=== PATIENT | female | born 1960 | race Caucasian/White ===

== ENCOUNTER 2023-12-25 08:13 | Oncology outpatient (recurring) (ONCR) | payer MEDICAID, SELFPAY ==
[2023-12-25 08:59] LABS: Basophils # 0.1 10^3/uL (0.0-0.1); Basophils % 0.8 %; Eosinophils # 0.3 10^3/uL (0.0-0.8); Eosinophils % 3.4 %; Hematocrit 41.5 % (36-47); Lymphocytes # 3.3 10^3/uL (0.8-4.8); Mean Corpuscular HGB Conc 32.3 g/dL (30-55); Mean Corpuscular Hemoglobin 29.1 pg (27-33); Mean Platelet Volume 13.9 fL (7.4-10.4); Monocytes # 0.6 10^3/uL (0.2-0.9); Neutrophils % 44.7 %; Nucleated Red Blood Cells % 0 %; Platelet Count 124 10^3/cmm (157-399); Red Blood Count 4.61 10^6/uL (3.85-5.65); Red Cell Distribution Width 13.7 % (12.1-15.1); White Blood Count 7.61 10^3/uL (3.29-11.43)
[2023-12-25 09:21] LABS: Slide Review Slide Review Perform
[2023-12-25 09:27] LABS: Alanine Aminotransferase 18 U/L (0-33); Albumin Level 3.9 g/dL (3.5-5.2); Alkaline Phosphatase 78 U/L (35-105); Anion Gap 14.2 (5-19); Aspartate Amino Transferase 16 U/L (0-32); Blood Urea Nitrogen 21 mg/dL (8-23); Calcium 8.9 mg/dL (8.5-10.5); Carbon Dioxide 27 mmol/L (22-29); Chloride 101 mmol/L (98-107); Creatinine Clr Calc Pharmacy 90.8225; Globulin 2.9 g/dL (1.3-4.6); Glomerular Filtration Rate 100.3 mL/min (90-130); Glucose 268 mg/dL (65-115); Lactate Dehydrogenase 156 U/L (135-214); Osmolality Calculated 298 mOsm/kg (285-295); Potassium 4.2 mmol/L (3.5-5.1); Sodium 138 mmol/L (136-145); Total Bilirubin 0.4 mg/dL (0.15-1.2); Total Protein 6.8 g/dL (6.6-8.7)
== END 2023-12-25 23:59 | disposition home or self-care (01) ==
PROVIDERS: Family Provider Nurse Practitioner Family; Visit Provider Internal Medicine Hematology & Oncology
DX: D69.6 Thrombocytopenia, unspecified (principal)
CPT/HCPCS: 36415; 80053; 83010; 83615; 85025; 99204

== ENCOUNTER 2024-11-12 08:42 | Emergency (ER) | payer MEDICAID, SELFPAY ==
[2024-11-12 08:42] VITALS: BP 176/87; PULSE 68; RESP 19; TEMP 36.5; O2SAT 98; BMI 49.2
--- NOTE | 2024-11-12 08:47 | CT_ITS ---
WS: [id number] CT ABDOMEN AND PELVIS WITH CONTRAST HISTORY: abd pain, LEFT lower quadrant pain. TECHNIQUE: Imaging performed of the abdomen and pelvis with IV contrast. Single phase imaging of the abdomen. Coronal and sagittal reformats are submitted. All CT scans at [facility] use at least one of these dose optimization techniques: automated exposure control; mA and/or kV adjustment per patient size (includes targeted exams where dose is matched to clinical indication); or iterative reconstruction. IV CONTRAST: Omnipaque 350; 100 mL IV. Oral contrast: No DLP: 1193.53 mGy.cm COMPARISON: 01/06/2019 Lower thorax: Mild bronchial wall thickening medial RIGHT lower lobe adjacent to the spine. 5 mm RIGHT perifissural nodule. Heart is normal size. Mild distal esophageal wall thickening. Liver/biliary system: Mild hepatomegaly. Mild central bile duct dilatation is related to cholecystectomy. Common bile duct measures 8.2 mm. Gallbladder: Prior cholecystectomy. Pancreas: Normal size pancreas and pancreatic duct. No adjacent inflammation. Spleen: Normal size spleen. No mass or infarct. Adrenal glands: Normal. Right kidney: Normal. Left kidney: Mildly enlarged edematous LEFT kidney. Perinephric stranding surrounding the kidney with perinephric fluid. LEFT renal cyst 4.5 x 4.9 cm lower pole. Nonobstructing 2 mm calcification in the lower pole. Mild dilatation of the RIGHT renal pelvis and proximal ureter secondary to a 4 mm calcification. Calcification is in the proximal ureter. The more distal ureter is normal caliber. There is also slight delayed excretion in the LEFT kidney compared to the RIGHT. No renal abscess. Aorta: Mild atherosclerosis with no aneurysm. Lymphadenopathy: None. Free fluid: No free fluid in the pelvis. GI tract: High density mid distal material within the stomach. No small bowel obstruction. Prior appendectomy. No colon obstruction or colitis. Abdominal wall: Fat containing umbilical hernia. Pelvis: No free fluid or adenopathy within the pelvis. Prior hysterectomy. Negative urinary bladder. Bones: Increase in the lumbar lordosis. CT/CT abdomen pelvis w con* [id number] IMPRESSION: 1. Mild LEFT hydroureteronephrosis secondary to a 4 mm calcification in the pr oximal ureter. 2. Mild perinephric stranding, perinephric fluid and delayed excretion from th e LEFT kidney. 3. No renal abscess. 4. Prior appendectomy. 5. Prior hysterectomy. 6. No GI tract obstruction.
--- NOTE | 2024-11-12 08:48 | ED_ITS ---
HPI - Abdominal Pain 2 General: Chief Complaint: Abdominal Pain Stated Complaint: abd pain Time Seen by Provider: 11/12/24 08:42 Source: patient Mode of arrival: ambulatory Limitations: no limitations History of Present Illness: 64-year-old female states that she has b een having left lower quadrant abdominal pain since last night. She states the pain is sharp in nature she rates an 8 out of 10. She denies any fever denies any dysuria denies any diarrhea. She states pain is worse with movement and palpation. Associated Symptoms: Reports nausea; Denies chills, diarrhea, dysuria, fever(s) and vomiting Related Data Home Medications ?Medication ?Instructions ?Recorded ?Confirmed famotidine 40 mg tablet mg PO PRN 12/25/23 12/25/23 glyburide 5 mg tablet mg PO 12/25/23 12/25/23 insulin human U-100 NPH-regulr SUBCUT 12/25/23 4 70-30 mix 100 unit/mL subcutaneous susp (Novolin 70/30 U-100 Insulin) lisinopril 2.5 mg tablet mg PO 12/25/23 12/25/23 tramadol 50 mg tablet mg PO PRN 12/25/23 12/25/23 Previous Rx's ?Medication ?Instructions ?Recorded hydrocodone 5 mg-acetaminophen 325 1 tab PO Q6H PRN pa in #14 tabs 11/12/24 mg tablet ondansetron 4 mg disintegrating 4 mg PO Q6H PRN nausea and 11/12/24 tablet vomiting #14 tabs tamsulosin 0.4 mg capsule (Flomax) 0.4 mg PO DAILY #5 caps 11/12/24 Allergies Allergy/AdvReac Type Severity Reaction Status Date / Time amoxicillin Allergy Unknown Dizziness Verified 12/25/23 08:19 ciprofloxacin Allergy Unknown ALGY-Hives Verified 12/25/23 08:19 levothyroxine Allergy Unknown ALGY-Rash Verified 12/25/23 08:19 Sulfa (Sulfonamide Allergy Unknown ALGY-Rash Verified 12/25/23 08:19 Antibiotics) Influenza vaccine Allergy Unknown Unknown Uncoded 12/25/23 08:19 steroid shot Allergy Unknown Seizure Uncoded 12/25/23 08:19 Review of Systems 2 Const: Denies: fever(s), chills, body aches or change in appetite ENMT: Denies: throat pain or dental pain Card: Denies: chest pain Resp: Denies: dyspnea GI: Reports: abdominal pain and nausea; Denies: vomiting or diarrhea : Denies: dysuria Musc: Denies: neck pain or back pain Skin/Breast: Denies: rash Neuro: Denies: headache(s) PFSH ED 2 PFSH: Social History Smoking and tobacco/nicotine status: never used tobacco/nicotine Physical Exam 2 Const: COMMON NORMALS: no acute distress, patient oriented x3 and healthy appearing HENMT: COMMON NORMALS: normocephalic and atraumatic HEAD & SCALP: n ormocephalic and atraumatic Eye: COMMON NORMALS: conjunctivae normal CONJUNCTIVA: Yes conjunctivae normal Neck/C-Spine: COMMON NORMALS: full ROM and supple Chest: COMMONS NORMALS: normal inspection of the chest Resp: COMMON NORMALS: normal respiratory effort, No retractions, No use of accessory muscles and clear to auscultation bilaterally AUSCULTATION: clear to auscultation bilaterally Cardio: COMMON NORMALS: regular rate, regular rhythm and No murmurs present (Cardio) RATE: regular rate RHYTHM: regular rhythm GI: COMMON NORMALS: Normal to inspection, nondistended, normoactive bowel sounds present, Soft to palpation and no masses PALPATION: Yes Soft to palpation and Yes Tenderness to palpation present (GI) Details: LLQ Extremity: COMMON NORMALS: normal to inspection and full ROM Neuro: COMMON NORMALS: patient oriented x3, moves all extremities and no focal motor deficits Psych: COMMON NORMALS: mental status grossly normal, Normal thought process present and cooperative THOUGHT PROCESS: Normal thought process present Skin: COMMON NORMALS: no rashes or lesions noted and no wounds GENERAL SKIN EXAM: no rashes or lesions noted Course 2 Vital Signs: Vital signs: Vital Signs Temperature 97.7 F 11/12/24 08:42 Pulse Rate 75 11/12/24 10:17 Respiratory Rate 16 11/12/24 09:47 Blood Pressure 143/55 11/12/24 09:47 Pulse Oximetry 91 11/12/24 10:17 Oxygen Delivery Me thod Room Air 11/12/24 09:47 MDM - Abdominal Pain Medical Decision Making Patient presents here with left lower abdominal and flank pain. I did review patient's blood work urinalysis no signs of urinary tract infection kidney functions intact. CT scan here did show a kidney stone likely causing her pain. I did reevaluate her pain is much improved did go over her labs along with CT findings of the kidney stone. Will prescribe her hydrocodone along with Flomax and Zofran for home she is to follow-up with urology she understands and agrees to plan. She is return if worsening or any signs of infection. Medical Records I reviewed the patient's medical records. Lab Data I reviewed the patient's lab results. 11/12/24 08:51 11/12/24 08:51 Labs/Radiology: Radiology Impressions Abdomen/Pelvis CT 11/12/24 08:47 IMPRESSION: 1. Mild LEFT hydroureteronephrosis secondary to a 4 mm calcification in the proximal ureter. 2. Mild perinephric stranding, perinephric fluid and delayed excretion from the LEFT kidney. 3. No renal abscess. 4. Prior appendectomy. 5. Prior hysterectomy. 6. No GI tract obstruction. Laboratory Results WBC 11.02 10^3/uL (3.29-11.43) 11/12/24 08:51 RBC 4.65 10^6/uL (3.85-5.65) 11/12/24 08:51 Hgb 13.70 g/dL (11.27-16.99) 11/12/24 08:51 Hct 42.7 % (36-47) 11/12/24 08:51 MCV 91.8 fl (85-98) 11/12/24 08:51 MCH 29.5 pg (27-33) 11/12/24 08:51 MCHC 32.1 g/dL (30-55) 11/12/24 08:51 RDW 13.3 % (12.1-15.1) 11/12/24 08:51 Plt Count 135 10^3/cmm (157-399) L 11/12/24 08:51 MPV 14.1 fL (7.4-10.4) H 11/12/24 08:51 Neut % (Auto) 68.5 % 11/12/24 08:51 Lymph % (Auto) 23.8 % 11/12/24 08:51 Steele % (Auto) 5.7 % 11/12/24 08:51 Eos % (Auto) 1.2 % 11/12/24 08:51 Baso % (Auto) 0.5 % 11/12/24 08:51 Neut # (Auto) 7.55 10^3/uL (1.8-7.7) 11/12/24 08:51 Lymph # (Auto) 2.6 10^3/uL (0.8-4.8) 11/12/24 08:51 Steele # (Auto) 0.6 10^3/uL (0.2-0.9) 11/12/24 08:51 Eos # (Auto) 0.1 10^3/uL (0.0-0.8) 11/12/24 08:51 Baso # (Auto) 0.1 10^3/uL (0.0-0.1) 11/12/24 08:51 Nucleated RBC % (auto) 0 % 11/12/24 08:51 Nucleated RBCs # 0.0 /100WBC 11/12/24 08:51 Sodium 138 mmol/L (136-145) 11/12/24 08:51 Potassium 4.2 mmol/L (3.5-5.1) 11/12/24 08:51 Chloride 100 mmol/L (98-107) 11/12/24 08:51 Carbon Dioxide 23 mmol/L (22-29) 11/12/24 08:51 Anion Gap 19.2 (5-19) H 11/12/24 08:51 BUN 22 mg/dL (8-23) 11/12/24 08:51 Creatinine 0.8 mg/dL (0.5-0.9) 11/12/24 08:51 GFR Calculation 71.8 mL/min (90-130) L 11/12/24 08:51 Glucose 316 mg/dL (65-115) H 11/12/24 08:51 Calculated Osmolality 301 mOsm/kg (285-295) H 11/12/24 08:51 Calcium 9.3 mg/dL (8.5-10.5) 11/12/24 08:51 Total Bilirubin 0.3 mg/dL (0.15-1.2) 11/12/24 08:51 AST 17 U/L (0-32) 11/12/24 08:51 ALT 17 U/L (0-33) 11/12/24 08:51 Alkaline Phosphatase 82 U/L (35-105) 11/12/24 08:51 Total Protein 7.5 g/dL (6.6-8.7) 11/12/24 08:51 Albumin 4.1 g/dL (3.5-5.2) 11/12/24 08:51 Globulin 3.4 g/dL (1.3-4.6) 11/12/24 08:51 Lipase 49 U/L (13-60) 11/12/24 08:51 Urine Color Yellow (Yellow) 11/12/24 09:44 Urine Appearance Clear (CLEAR) 11/12/24 09:44 Urine pH 5.0 (5-7) 11/12/24 09:44 Ur Specific [place] 1.029 (1.005-1.030) 11/12/24 09:44 Urine Protein 2+ (Negative) A 11/12/24 09:44 Urine Glucose (UA) 3+ (Normal) H 11/12/24 09:44 Urine Ketones Trace (Negative) 11/12/24 09:44 Urine Blood Trace (Negative) A 11/12/24 09:44 Urine Nitrate Negative (Negative) 11/12/24 09:44 Urine Bilirubin Negative (Negative) 11/12/24 09:44 Urine Urobilinogen 0.2 mg/dL (Negative) 11/12/24 09:44 Ur Leukocyte Esterase Negative (Negative) 11/12/24 09:44 Urine RBC 0-2 /hpf (0-2) 11/12/24 09:44 Urine WBC 6-10 /hpf (0-5) 11/12/24 09:44 Ur Squamous Epith Cells 0-5 /hpf (0-5) 11/12/24 09:44 Amorphous Sediment Not Reportable 11/12/24 09:44 Urine Bacteria None seen /hpf (NONE) 11/12/24 09:44 Hyaline Casts 0.40 /lpf 11/12/24 09:44 All radiology interpretation(s) finalized by discharge Discharge Plan Discharge Patient Disposition: Home Clinical Impression: Kidney stone Condition: Stable Prescriptions: New hydrocodone-acetaminophen 5-325 mg tablet 1 tab PO Q6H PRN (Reason: pain) Qty: 14 0RF ondansetron 4 mg tablet,disintegrating 4 mg PO Q6H PRN (Reason: nausea and vomiting) Qty: 14 0RF tamsulosin [Flomax] 0.4 mg capsule 0.4 mg PO DAILY Qty: 5 0RF No Action lisinopril 2.5 mg tablet PO glyburide 5 mg tablet PO tramadol 50 mg tablet PO PRN famotidine 40 mg tablet PO PRN Novolin 70/30 U-100 Insulin 100 unit/mL (70-30) suspension SUBCUT Discharge Orders: Discharge ED (Routine); Ordered 11/12/24 Ordered By: Anuj Burciaga Referrals: Hinojosa,SAMARIA Welch [Family Provider, Nurse Practitioner] Discharge Diet: Advance as tolerated Discharge Activity: Resume usual activity Patient Instructions: Kidney Stones (ED), Opioid Safety Print Language: Nigerien Coding Level of Care Code ED Assisted Living Manager for Sis Hyde
[2024-11-12] MEDS: morphine 4 mg/mL SDV 1 mL IVP ×2 (08:55→10:13)
[2024-11-12] MEDS: ondansetron 2 mg/ML SDV 2 mL 4 MG IVP ×2 (08:55→10:14)
[2024-11-12 08:56] LABS: Hematocrit 42.7 % (36-47); Hemoglobin 13.70 g/dL (11.27-16.99); Mean Corpuscular HGB Conc 32.1 g/dL (30-55); Mean Corpuscular Hemoglobin 29.5 pg (27-33); Mean Corpuscular Volume 91.8 fl (85-98); Nucleated Red Blood Cells % 0 %; Platelet Count 135 10^3/cmm (157-399); Red Blood Count 4.65 10^6/uL (3.85-5.65); White Blood Count 11.02 10^3/uL (3.29-11.43)
--- OUTSIDE RECORDS SUMMARY | 2024-11-12 08:57 | XMS_ITS | Clinical Summary ---
Author Organization [employer] Address [address] [facility] Attn: Epic Prelude ADT RAMIREZ GIORDANO [id number] Care Team Providers Care Gm Mobile Name Role Phone Unavailable Primary Care Provider Unavailabl e Allergies Active Allergy Reactions Criticality Noted Date Comments Ciprofloxacin Other (See Comments) 11/10/2016 I get really really sick Influenza Virus Vac. Tri-Split Other (See Comments) 11/10/2016 Spiked blood pressure too high almost gave her a stroke Unclassified Drug Seizure High 11/10/2016 Medications metoclopramide HCl (REGLAN) 10 mg tablet Take 1 Tablet (10 mg) by mouth 4 times daily before meals and at bedtime. 20 Tablet None 7 Active glimepiride (AMARYL) 4 mg tablet Take 5 mg by mouth daily with breakfast. Active insulin NPH-regular (HUMULIN 70-30,NOVOLIN 70-30) 100 unit/mL (70-30) pen syringe Inject 20 Units by subcutaneous injection 2 times daily. 7 Active lisinopriL (PRINIVIL) 2.5 mg tablet Take 2.5 mg by mouth 3 times daily. 7 Active amino acids/chromium (CHROMIMIN ORAL) Take by mouth. 7 Active vitamin B complex Tablet Sustained Release Take 1 Tablet by mouth daily. Active ZINC ACETATE ORAL Take by mouth. 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 Gender Identity Not on file Sexual Orientation Not on file Last Filed Vital Signs Vital Sign Reading Time Taken Comments Blood Pressure 164/70 11/11/2016 3:00 AM CDT Pulse - - Temperature 36.4 C (97.5 F) 11/10/2016 10:53 PM CDT Respiratory Rate 20 11/11/2016 3:00 AM CDT Oxygen Saturation - - Inhaled Oxygen Concentration - - Weight 118.8 kg (262 lb) 11/10/2016 10:53 PM CDT Height 160 cm (5' 3 ) 11/10/2016 10:53 PM CDT Body Mass Index 46.41 11/10/2016 10:53 PM CDT Plan of Treatment Health Maintenance Due Date Last Done Comments DTAP/TDAP/TD VACCINES (1 - Tdap) 1977 BREAST CANCER SCREENING 1998 COLORECTAL SCREENING 2003 Colorectal Cancer Screening 2003 FIT-DNA Q 3 years 2003 FIT/FOBT Q 1 year 2003 Flex Sig/CT Colonography Q 5 years 2003 PNEUMOCOCCAL VACCINE 50+ YEARS (1 of 1 - PCV) 02/12/20 08 ZOSTER VACCINE (1 of 2) 02/12/2008 OSTEOPOROSIS SCREENING 2023 INFLUENZA VACCINE (#1) 2024 RSV VACCINE (60+ or ) (1 - 1-dose 75+ series) 2033
--- OUTSIDE RECORDS SUMMARY | 2024-11-12 08:57 | XMS_ITS | Clinical Summary ---
Author Organization [facility] Address [address] [place] [address] Phone Care Team Providers Care Glue Mixer Name Role Phone Unavailable Primary Care Provider Unavailabl e Allergies Active Allergy Reactions Criticality Noted Date Comments Ciprofloxacin Other (See Comments) 11/10/2016 I get really really sick Influenza Virus Vac. Tri-Split Other (See Comments) 11/10/2016 Spiked blood pressure too high almost gave her a stroke Unclassified Drug Seizure High 11/10/2016 Medications lisinopril (PRINIVIL) 2.5 mg tablet Take 2.5 mg by mouth 3 times daily. Active insulin NPH-regular (HUMULIN 70-30,NOVOLIN 70-30) 100 unit/mL (70-30) pen syringe Inject 20 Units by subcutaneous injection 2 times daily. Active glimepiride (AMARYL) 4 mg tablet Take 5 mg by mouth daily with breakfast. Active vitamin B complex Tablet Sustained Release Take 1 Tablet by mouth daily. Active AMINO ACIDS/CHROMIUM (CHROMIMIN ORAL) Take by mouth. Activ e ZINC ACETATE ORAL Take by mouth. Activ e metoclopramide HCl (REGLAN) 10 mg tablet Take 1 Tablet (10 mg) by mouth 4 times daily before meals and at bedtime. 20 Tablet None 7 Active Social History Tobacco Use Types Packs/Day Years Used Date Smoking Tobacco: Never Smokeless Tobacco: Never Alcohol Use Standard Drinks/Week Comments No 0 (1 standard drink = 0.6 oz pur e alcohol) Comments Unknown Sex and Gender Information Value Date Recorded Sex Assigned at Not on file Legal Sex Female 10:46 PM CDT Gender Identity Not on file Sexual Orientation Not on file Last Filed Vital Signs Vital Sign Reading Time Taken Comments Blood Pressure 164/70 11/11/2016 3:00 AM CDT Pulse - - Temperature 36.4 C (97.5 F) 11/10/2016 10:53 PM CDT Respiratory Rate 20 11/11/2016 3:00 AM CDT Oxygen Saturation 95% 11/11/2016 3:00 AM CDT Inhaled Oxygen Concentration - - Weight 118.8 [...] ) (1 - 1-dose 75+ series) 2033 Insurance [place]ID [place]
[2024-11-12 09:12] LABS: Alanine Aminotransferase 17 U/L (0-33); Albumin Level 4.1 g/dL (3.5-5.2); Alkaline Phosphatase 82 U/L (35-105); Anion Gap 19.2 (5-19); Aspartate Amino Transferase 17 U/L (0-32); Blood Urea Nitrogen 22 mg/dL (8-23); Calcium 9.3 mg/dL (8.5-10.5); Carbon Dioxide 23 mmol/L (22-29); Chloride 100 mmol/L (98-107); Creatinine Clr Calc Pharmacy 89.4137; Globulin 3.4 g/dL (1.3-4.6); Glucose 316 mg/dL (65-115); Lipase 49 U/L (13-60); Osmolality Calculated 301 mOsm/kg (285-295); Potassium 4.2 mmol/L (3.5-5.1); Sodium 138 mmol/L (136-145); Total Protein 7.5 g/dL (6.6-8.7)
[2024-11-12 09:27] LABS: Slide Review Slide Review Perform
[2024-11-12] MEDS: iohexol 350 mg/mL 500 mL Btl (per mL) IV (09:36)
[2024-11-12 09:47] VITALS: BP 143/55; PULSE 77; RESP 16; O2SAT 95
[2024-11-12 09:48] LABS: Glucose Urine UA 3+ (Normal); Nitrate Urine Negative (Negative); Specific Gravity, Urine 1.029 (1.005-1.030)
[2024-11-12 09:53] LABS: Add Urine Microscopic? YES
[2024-11-12 10:17] VITALS: PULSE 75; O2SAT 91
== END 2024-11-12 10:54 | disposition home or self-care (01) ==
PROVIDERS: Emergency Provider Emergency Medicine; Family Provider Nurse Practitioner Family
DX: N20.0 Calculus of kidney (principal)
CPT/HCPCS: 74177; 80053; 81001; 83690; 85025; 96374; 96375; 96376; 99285; J1885; J2270; J2405

== ENCOUNTER 2024-11-13 14:29 | Inpatient (IN) | payer MEDICAID, SELFPAY ==
--- OUTSIDE RECORDS SUMMARY | 2024-10-04 04:00 | XMS_ITS ---
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 Role Phone Jeronimo Hinojosa Primary Care Provider JERONIMO HINOJOSA Unavailable Unavailable REASON FOR VISIT 3 month f/u Encounters Encounter Location Date Provider Diagnosis [facility] Office [address] [place] [address] 10/04/2024 Jeronimora Hinojosa Plan Of Treatment Next Appt Details Provider Name:Jeronimo Hinojosa, 12/13/2024 10:20:00 AM, [address], [place], [address], Progress Notes * Nevaeh CUELLARDOB:[birth year] (64 yo F)Acc No.[id number]:10/04/2024 Progress Notes Patient: Maureen barnesNevaeh carson Provider: Madonna Hinojosa PAINT STRIPPER :1960 A ge:64 Y S ex:Female Date:10/04/2024 Address:[address] [place] [id number] Subjective: * Chief Complaints: * 3 month f/u Care Plan Details* * Electronic signature of Conrad Hinojosa APN on 11/13/2024 at 02:35 PM CDT Sign off status: Pending * Provider: Madonna Hinojosa PAINT STRIPPER Date: 0 10/04/2024 Generated for Rosalvai markell/Asia/eTransmitting on: 0 11/13/2024 02:35 PM CDT
--- OUTSIDE RECORDS SUMMARY | 2024-11-08 05:00 | XMS_ITS ---
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 Role Phone [facility] Primary Care Provider [facility] Unavailable Unavailable Allergies Allergen (clinical drug ingredient) Drug/Non Drug Allergy documented on EMR Reaction Allergy Type Onset Date Status steroid shot (uncoded) seizures Allergy Active amoxicillin Amoxicillin dizziness Drug Allergy 11/24/2023 Ac tive ciprofloxacin Cipro rash, hives Drug Allergy A ctive Vaccine product containing Influenza virus antigen (medicinal product) Influenza Vaccines Unknown Drug Allergy Ac tive levothyroxine Levothyroxine nausea and vomiting, diarrhea, rash Drug Allergy Active Substance with sulfonamide structure and antibacterial mechanism of action (substance) Sulfa Antibiotics rash Drug Allergy 11/24/2023 Active Results Component Value Reference Range Flag Notes CBC w\ Auto Diff [id number] Reviewed date:11/11/2024 01:33:49 PM Interpretation:Abnormal Performing Lab: Notes/Report: Diagnosis Description: Essential (primary) hypertension WBC 8.0 4.5-11.0 X10'3 RBC 4.21 4.00-5.20 X10'6 Hgb 12.2 12.0-16.0 G/DL Hct 39.0 36.0-46.0 % MCV 92.6 80.0-100.0 FL MCH 29.0 27.0-31.0 PG MCHC 31.3 31.0-37.0 G/DL Platelet 130 150-400 X10'3 LOW RDW-SD 46.7 35.0-49.0 FL RDW-CV 13.4 12.2-15.6 % MPV 14.6 9.2-12.0 FL HI Neutro Auto% 39.7 40.0-70.0 % LOW Lymph Auto% 48.4 22.0-44.0 % HI [place] Auto% 7.9 3.0-7.0 % HI Eos Auto% 2.8 2.0-4.0 % Baso Auto% 0.9 0.0-1.0 % Imm Gran% .3 .0-.4 % Neutro Abs 3.19 .80-7.70 Absolute Neutrophil Count 3190 NA Lymph Abs 3.87 .10-4.10 [place] Abs .63 .20-1.00 Eos Abs .22 .00-.40 Baso Abs .07 .00-.20 Imm Gran Abs .02 .00-.10 NRBC# .00 .00-.20 X10'3 NRBC% .00 .00-.20 /100 int act WBC's Comprehensive Metabolic Pane l (CMP) 97452 Reviewed date:11/11/2024 01:33:49 PM Interpretation:Abnormal Performing Lab: Notes/Report: Diagnosis Description: Essential (primary) hypertension Glucose Serum 207 71-110 MG/DL HI Testing p erformed at [facility], [address] [place] [address] [place] [address]. CLIA ID#: [id number] BUN 22 7-21 MG/DL HI Creat .61 .51-1.17 MG/DL H-wdyszb-t-benzoquinone imine (NAPQI) is a metabolite of acetaminophen, NAPQI concentrations of apparoximately 10 mg/L correlation to toxic levels of acetaminophen demonstrates a greater than or equil to 10% change in results. NAPQI concentrations greater than this may lead to falsely depressed results for patient samples. Use of this assay is not recommended for patients undergoing treatment with phenindione, due to the potential for falsely depressed results. GFR 98.0 NA Calculation pe rformed from GFR calculator provided by the [employer]. Glomerular Filtration rate(GRF) is the best overall index of kidney function. Normal GFR varies according to age,sex, body size, and declines with age. The National Kid[employer] Foundation recommends using the CKD-EPI Creatinine Equation(2020) to estimate GFR. BUN/Creat Ratio 36.1 12.0-20.0 % HI Total Protein 6.2 5.8-8.0 G/DL Albumin 3.9 3.2-4.8 G/DL Globulin 2.3 2.3-3.5 G/DL Alb/Glob 1.7 0.8-2.2 Calcium 8.7 8.7-10.4 MG/DL Sodium 142 136-145 MMOL/L Potassium 4.1 3.5-5.1 MMOL/L Chloride 106 98-107 MMOL/L CO2 23.6 20.0-31.0 MMOL/L Anion Gap 16 5-15 HI Alk Phos 67 46-116 Bili Total .4 .3-1.2 MG/DL Use of this assay is not recommended for patients undergoing treatment with eltrombopag due to the potential for falsely elevated results. 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 >7.0 % diabetics. EAG 209 NA Estimated Aver age Glucose(EAG). Lipid Panel Reflex DLDL 1888 8, 69087 Reviewed date:11/11/2024 01:33:49 PM Interpretation:High Performing Lab: Notes/Report: Diagnosis Description: Essential (primary) hypertension Trig 170 NA Classification Guidelines:Triglycerides Adults: >20yrs Desirable <150 Borderline High 150-199 High 200-499 Very high >=500 Children: Male 0-4 yr 22-99 5-9 yr 30-101 10-14 yr 32-125 15-19 yr 37-148 Children: Female 0-4 yr 34-112 5-9 yr 32-105 10-14 yr 37-131 15-19 yr 39-132 Chol 163 <=200 MG/DL HDL 44 39-96 MG/DL Reference Ranges:HDL Male: 5-9y 38-75 10-14y 37-74 15-19y 30-63 >=20y 40-59 Female: 5-9y 36-73 10-14y 37-70 15-19y 35-74 >=20y 40-59 CH/HDL 3.7 0.0-4.9 RATIO LDL 85 0-130 MG/DL LDL result is inaccurate , if Trig is >400 mg/dl. See DLDL result. 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 Patient denies recent falls and refuses Colonoscopy screening., Urine Microalbumin needed, Depression, Functional Status, Fall Risk Needed, Diabetic Eye, Foot, Breastand Colon Cancer Screening Needed, Venipuncture Medications Medication SIG (Take, Route, Frequency, Duration) Notes Start Date End Date Status Multi Vitamin - Tablet 1 tablet Orally O nce a day Active Zinc 50 MG Tablet 1 tablet Orally Once a day Active Triamterene-HCTZ 37.5-25 MG Tablet TAKE ONE TABLET BY MOUTH EVERY DAY NEEDED FOR swelling; Duration: 30 Active Triamcinolone Acetonide 0.1 % Cream APPLY topically TWICE DAILY DIRECTED; Duration: 30 Active Ventolin HFA 108 (90 Base) MCG/ACT Aerosol Solution INHALE TWO PUFFS FOUR TIMES A DAY NEEDED; Duration: 25 Active Vitamin C 1000 MG Tablet 1 tablet Orally Once a day Active Loratadine 10 MG Tablet Disintegrating 1 tablet on the tongue and allow to dissolve Orally Once a day Active B Complex - Capsule as directed Orally Active Zepbound 2.5 MG/0.5ML Solution Auto-injector 2.5 mg Subcutaneous weekly; Duration: 30 days for cardiovascular risk reduction 11/08/2024 Active Aspirin 81 81 MG Tablet Delayed Release 1 tablet Orally Once a day Active Lisinopril 2.5 mg Tablet TAKE ONE TABLET BY MOUTH THREE TIMES DAILY; Duration: 30 Active Mounjaro 2.5 MG/0.5ML Solution Auto-injector 2.5 mg Subcutaneous weekly; Duration: 30 days 07/02/2024 Not-Taking glyBURIDE 5 MG Tablet TAKE 2 TABLETS BY MOUTH TWICE DAILY AFTER A MEAL; Duration: 30 Active Famotidine 40 mg Tablet TAKE ONE TABLET BY MOUTH EVERY DAY; Duration: 30 Active traMADol HCl 50 mg Tablet TAKE ONE TABLET BY MOUTH EVERY 4 HOURS NEEDED FOR SEVERE pain FOR 30 DAYS. NEXT FILL 02/16/2024 FOR HOLIDAY.; Duration: 30 04/15/2024 Active Mucinex 600 mg Tablet Extended Release 12 Hour TAKE ONE TABLET BY MOUTH EVERY TWELVE HOURS; Duration: 60 Active BD Insulin Syringe U/F 31G X 5/16 0.5 ML Miscellaneous USE DIRECTED NEEDED; Duration: 30 Active NovoLIN 70/30 ReliOn (70-30) 100 UNIT/ML Suspension INJECT 24 UNITS SUBCUTANEOUSLY TWICE DAILY OR DIRECTED; Duration: 30 Active Social History Tobacco Use: Social History Observation Description Date Details (start date - stop date) Never Smoker NA - NA Social History Depression Screening Social Info Question Answer Notes depression screening findings Findings Negative (0 -4) PHQ-9 Little interest or p eliceo in doing things Not at all Feeling down, depressed, or hopeless Not at all Trouble falling or staying asleep, or sleeping t oo much Not at all Feeling tired or having little energy Not at all Poor appetite or overeating Not at all Feeling bad about yourself, or that you are a failure, or have let yourself or your family down Not at all Trouble concentrating on thi ngs, such as reading the newspaper or watching television Not at all Moving or speaking so slowly that other people could have noticed. Or the opposite ? being so fidgety or restless that you have been moving around a lot more than usual Not at all Thoughts that you would be b margarette off , or of hurting yourself in some way Not at all Total Score 0 Tobacco Use: Social Info Question Answer Notes Tobacco Control (Standard) Tobacco use: Nonsmoker Section Notes: Depression screen completed 11/24/2023 score 0, PHQ9 11/08/2024 Problems Problem Type SNOMED Code ICD Code Onset Dates Problem Status W/U Status Risk Notes Problem Morbid obesity (455691744) Morbid obesity with body mass index (BMI) of 40.0 or higher (E66.01) Active confirmed Vital Signs Temperature 97.7 degrees Fahrenheit 11/09/19 25 Blood pressure systolic 122 mm Hg 11/09/19 25 Blood pressure diastolic 64 mm Hg 025 Heart Rate 64 /min 11/08/2024 Respiratory Rate 20 /min 11/08/2024 Height 63 in 11/08/2024 Weight 279 lbs 11/08/2024 BMI 49.42 kg/m2 11/08/2024 Oximetry 97 % 11/08/2024 Height-cm 160.02 cm 11/08/2024 Weight-kg 126.55 kg 11/08/2024 Encounters Encounter Location Date Provider Diagnosis [facility] Office [address] [address] 11/08/2024 [facility] (current) use of insulin Z79.4 ; Primary hypertension I10 ; Diabetic polyneuropathy associated with type 2 diabetes mellitus E11.42 ; Morbid obesity with body mass index (BMI) of 40.0 or higher E66.01 and Depression screen Z13.31 Assessments Encounter Date Diagnosis (ICD Code) Assessment Notes Treatment Notes Treatment Clinical Notes Section Notes 11/08/2024 [facility] (current) use of insulin (ICD-10 - Z79.4) continue meds ha1c tsh 11/08/2024 Primary hypertension (ICD-10 - I10) continue meds cbc cmp lipids 11/08/2024 Diabetic polyneuropathy associated with type 2 diabetes mellitus (ICD-10 - E11.42) 11/08/2024 Morbid obesity with body mass index (BMI) of 40.0 or higher (ICD-10 - E66.01) zepbound; for cardiolvascular risk reduction 11/08/2024 Depression screen (ICD-10 - Z13.31) 11/08/2024 Other Questions asked and answered; discharged to home. Venipuncture : Performed by:Santiago WHITE Attempts:x1 Location:[facility] Needle gauge:22g Patient tolerated well. 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 Next Appt Details Follow Up: 4 Weeks, Reason: recheck Provider Name:Rebekah Hinojosa, 12/13/2024 10:20:00 AM, [address] [facility], [place], [address], History and Physical Notes * Examination Category Sub-Category Detail Notes Category Not es General Examination GENERAL APPEARANCE: alert, w ell hydrated, in no distress, converses well HEAD: normocephalic, atrau matic EYES: PERRL; normal conjun ctiva EARS: ... NECK/THYROID: neck supple, full ra nge of motion, no JVD, without thyromegaly or masses HEART: Regular rate and rhy thm, S1 S2 normal LUNGS: clear to auscultatio n bilaterally, no wheezes, rales, or rhonchi NEUROLOGIC: alert and oriented, cerebellar function normal, cognitive exam grossly normal, gait normal SKIN: warm and dry EXTREMITIES: no clubbing, cyanosi s, or edema. 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 Patient denies recent falls and refuses Colonoscopy screening. Urine Microalbumin neededDepression, Functional Status, Fall Risk NeededDiabetic Eye, Foot, Breast and Colon Cancer Screening NeededVenipuncture * HPI: P rovider Note: patient is an alert 64 year old female known to practice and here for recheck and medications discussed with patient diagnoses treatments and medications diabetes type 2 fdc insulin uses novulin 70/30; using 15 unit bid most days; continue plan continue glyburide states insurance never approved the [facility] e script for zepbound for cardiovascular risk reduction morbid obesity hypertension; lisinopril 2.5 mg fdc meds will draw labs this visit cbc cmp lipids tsh ha1c as well as microalbumin recheck 4 to 6 weeks and prn monitor bs home bs 140-150. * ROS: G eneral - Multi System: Endocrine System R EPORTS bs been good ranges. 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 * OB History: T otal living children 4 . T otal pregnancies 4 . * Surgical History: hysterectomy 2000 cholecystectomy 1989 appendectomy 1982 tubal ligation 1982 tonsillectomy 1959 Surgical History verified. * Hospitalization/Major Diagno stic Procedure: see surgery hx childbirth high blood sugar 2014 seizure 2013 Hospitalization Verified. * Family History: F ather: 74 yrs, hypertension. M other: 46 yrs, leukemia. F amily History Verified.. * Social History: T obacco Use: T obacco Control (Standard) T obacco use: N onsmoker D epression Screening: P HQ-9 L ittle interest or pleasure in doing things?Not at all F eeling down, depressed, or hopeless N ot at all T rouble falling or staying asleep, or sleeping too much N ot at all F eeling tired or having little energy N ot at all P oor appetite or overeating N ot at all F eeling bad about yourself, or that you are a failure, or have let yourself or your family down N ot at all T rouble concentrating on things, such as reading the newspaper or watching television N ot at all M oving or speaking so slowly that other people could have noticed. Or the opposite ? being so fidgety or restless that you have been moving around a lot more than usual N ot at all T houghts that you would be better off , or of hurting yourself in some way N ot at all T otal Score 0 Depression screening findings F indings N egative (0-4) S ocial History Verified. D epression screen completed 11/24/2023 score 0, PHQ9 11/08/2024. * Medications: T akingLoratadine 10 MG Tablet Disintegrating 1 tablet on the tongue and allow to dissolve Orally Once a day Vitamin C 1000 MG Tablet 1 tablet Orally Once a day Aspirin 81 81 MG Tablet Delayed Release 1 tablet Orally Once a day B Complex - Capsule as directed Orally Zinc 50 MG Tablet 1 tablet Orally Once a day Multi Vitamin - Tablet 1 tablet Orally Once a day Ventolin HFA 108 (90 Base) MCG/ACT Aerosol Solution INHALE TWO PUFFS FOUR TIMES A DAY NEEDED Triamcinolone Acetonide 0.1 % Cream APPLY topically TWICE DAILY DIRECTED Triamterene-HCTZ 37.5-25 MG Tablet TAKE ONE TABLET BY MOUTH EVERY DAY NEEDED FOR swelling NovoLIN 70/30 ReliOn (70-30) 100 UNIT/ML Suspension INJECT 24 UNITS SUBCUTANEOUSLY TWICE DAILY OR DIRECTED BD Insulin Syringe U/F 31G X 5/16 0.5 ML Miscellaneous USE DIRECTED NEEDED Mucinex 600 mg Tablet Extended Release 12 Hour TAKE ONE TABLET BY MOUTH EVERY TWELVE HOURS Lisinopril 2.5 mg Tablet TAKE ONE TABLET BY MOUTH THREE TIMES DAILY traMADol HCl 50 mg Tablet TAKE ONE TABLET BY MOUTH EVERY 4 HOURS NEEDED FOR SEVERE pain FOR 30 DAYS. NEXT FILL 02/16/2024 FOR HOLIDAY. Famotidine 40 mg Tablet TAKE ONE TABLET BY MOUTH EVERY DAY glyBURIDE 5 MG Tablet TAKE 2 TABLETS BY MOUTH TWICE DAILY AFTER A MEAL Taking Loratadine 10 MG Tablet Disintegrating 1 tablet on the tongue and allow to dissolve Orally Once a day Taking Vitamin C 1000 MG Tablet 1 tablet Orally Once a day Taking Aspirin 81 81 MG Tablet Delayed Release 1 tablet Orally Once a day Taking B Complex - Capsule as directed Orally Taking Zinc 50 MG Tablet 1 tablet Orally Once a day Taking Multi Vitamin - Tablet 1 tablet Orally Once a day Taking Ventolin HFA 108 (90 Base) MCG/ACT Aerosol Solution INHALE TWO PUFFS FOUR TIMES A DAY NEEDED Taking Triamcinolone Acetonide 0.1 % Cream APPLY topically TWICE DAILY DIRECTED Taking Triamterene-HCTZ 37.5-25 MG Tablet TAKE ONE TABLET BY MOUTH EVERY DAY NEEDED FOR swelling Taking NovoLIN 70/30 ReliOn (70-30) 100 UNIT/ML Suspension INJECT 24 UNITS SUBCUTANEOUSLY TWICE DAILY OR DIRECTED Taking BD Insulin Syringe U/F 31G X 5/16 0.5 ML Miscellaneous USE DIRECTED NEEDED Taking Mucinex 600 mg Tablet Extended Release 12 Hour TAKE ONE TABLET BY MOUTH EVERY TWELVE HOURS Taking Lisinopril 2.5 mg Tablet TAKE ONE TABLET BY MOUTH THREE TIMES DAILY Taking traMADol HCl 50 mg Tablet TAKE ONE TABLET BY MOUTH EVERY 4 HOURS NEEDED FOR SEVERE pain FOR 30 DAYS. NEXT FILL 02/16/2024 FOR HOLIDAY. Taking Famotidine 40 mg Tablet TAKE ONE TABLET BY MOUTH EVERY DAY Taking glyBURIDE 5 MG Tablet TAKE 2 TABLETS BY MOUTH TWICE DAILY AFTER A MEAL Not-TakingMounjaro 2.5 MG/0.5ML Solution Auto-injector 2.5 mg Subcutaneous weekly Medication List reviewed and reconciled with the patientNot-Taking Mounjaro 2.5 MG/0.5ML Solution Auto-injector 2.5 mg Subcutaneous weekly Medication List reviewed and reconciled with the patient * Allergies: C ipro: rash, hivessteroid shot: seizuresInfluenza VaccinesLevothyroxine: nausea and vomiting, diarrhea, rashAmoxicillin: dizziness - Allergy - Criticality Unknown - Onset Date 11/24/2023Sulfa Antibiotics: rash - Allergy - Criticality Unknown - Onset Date 11/24/2023yesAllergies Verified. Objective: * Vitals: H t: 63 in, Wt:279lbs, Wt-k.55 kg, BMI:49.42Index, Temp:97.7F, BP:122/64mm Hg, HR:64/min, RR:20/min, Oxygen sat %:97%, O2 Source: RA, Pain scale: 0 1-10, Ht- cm: 160.02 cm. * Examination: G eneral Examination: GENERAL APPEARANCE: a lert, well hydrated, in no distress, converses well. HEAD: n ormocephalic, atraumatic. EYES: P ERRL; normal conjunctiva. EARS: . ... NECK/THYROID: n nolberto supple, full range of motion, no JVD, without thyromegaly or masses. SKIN: w arm and dry. HEART: R egular rate and rhythm, S1 S2 normal. LUNGS: c lear to auscultation bilaterally, no wheezes, rales, or rhonchi. EXTREMITIES: n o clubbing, cyanosis, or edema.. NEUROLOGIC: a lert and oriented, cerebellar function normal, cognitive exam grossly normal, gait normal. PSYCH: a lert, oriented, cognitive function intact, cooperative with exam, good eye contact, mood/affect full range, speech clear. Assessment: * Assessment: 1. L valeria term (current) use of insulin - Z79.4 (Primary) 2 . P rimary hypertension - I10 3 . D iabetic polyneuropathy associated with type 2 diabetes mellitus - E11.42 4 . M orbid obesity with body mass index (BMI) of 40.0 or higher - E66.01 5 . D epression screen - Z13.31 Plan: * Treatment: 2. P rimary hypertension L AB: CBC w\ Auto Diff 30011 (Collection Date & Time - 11/08/2024 10:06 AM) L AB: Comprehensive Metabolic Panel (CMP) 01404 (Collection Date & Time - 11/08/2024 10:06 AM) L AB: Lipid Panel Reflex DLDL 44593, 66611 (Collection Date & Time - 11/08/2024 10:06 AM) Notes: continue meds cbc cmp lipids 3. D iabetic polyneuropathy associated with type 2 diabetes mellitus L AB: Microalbumin (U) Random 51388 (Collection Date & Time - 11/08/2024 10:06 AM) 4. M orbid obesity with body mass index (BMI) of 40.0 or higher Start Zepbound Solution Auto-injector, 2.5 MG/0.5ML, 2.5 mg, Subcutaneous, weekly for cardiovascular risk reduction, 30 days, 4, Start Date: 11/08/2024, Refills 3. Notes: zepbound; for cardiolvascular risk reduction 5. O thers Notes: Questions asked and answered; discharged to home. Clinical Notes:Venipuncture:Performed by:Santiago WHITE Attempts:x1 Location:[facility] Needle gauge:22g Patient tolerated well. ? * Procedure Codes: 3 6415 VENIPUNCT, ROUTINE*3078F DIAST BP < 80 MM [id number] SYST BP LT 130 MM [id number] BRIEF EMOTIONAL/BEHAV ASSMT * Preventive Medicine: Fall Risk Assessment: F all Risk Assessment Fall Risk Assessment N o falls in the past year Screenings: B REAST CANCER SCREENING: Date of most recent screenin 0 years ago, Normal Provider recommendation: r epeat Refuses further screening 07/02/2024 C ARE FOR OLDER ADULTS Functional Status N o Impairment for Functional Status Function Status Assessment date 0 11/08/2024 Medication review date 0 11/08/2024 Pain Assessment date 0 11/08/2024 Pain 0/10 C ERVICAL CANCER SCREENING: Date of the last PAP Smear : h ysterectomy, partial Provider recommendation: i s s/p hysterectomy C OLORECTAL CANCER SCREENING: Date of last colonoscopy o [place] 25 years ago, no polyps Colorectal screening: h as been completed in the past Colonoscopy Provider recommendation: s chedule Refuses further screening of both Colonoscopy and Cologuard. 07/02/2024, 11/08/2024 D EPRESSION SCREENING: Date of most recent screenin 11/08/2024 The patient denies: a nxiety, depressed mood, difficulty sleeping, lack of energy, lack of interest in things that were enjoyable, poor appetite, sadness, thoughts of harming him/herself, thought of harming someone else, trouble concentrating, weight gain, weight loss, any depressive symptoms at this time Suicidal ideation: h as never been expressed/considered Homicidal ideation: h as never been expressed/considered D IABETIC EYE EXAM Date of last dilated eye exam 2 022, [facility] Retinopathy N o Provider recommendation: yearly eye exams F ALL RISK SCREENING Fall Risk Assessment: N o falls in the past year Screening: N o falls in the past year T OBACCO USE SCREENING: The patient smoked: n o tobacco products V ACCINATIONS: Is patient's pneumococcal vaccine current? N o If No, explain 0 Patient refuses Completed vaccinations include: C ovid, Has never been donepatient is allergic to flu vaccine Influenza vaccinations: i s rarely done Refuses Reaction to vaccination(s): h as been severe Elevated blood pressure with Flu shot P HQ9 11/08/2024. * Follow Up: 4 Weeks (Reason: recheck) Billing Information: * Visit Code: 51260 Office Visit, Est Pt., Level 3. * Procedure Codes: 64758 VENIPUNCT, ROUTINE*. 3078F DIAST BP < 80 MM HG. 3074F SYST BP LT 130 [address]. 17652 BRIEF EMOTIONAL/BEHAV ASSMT. 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
[2024-11-13] VITALS (28 sets, daily range): BP systolic 70–121; BP diastolic 43–68; PULSE 87–101; RESP 16–32; TEMP 36.7–37.3; O2SAT 89–96; BMI 49.2; BMI 50.8
--- OUTSIDE RECORDS SUMMARY | 2024-11-13 14:35 | XMS_ITS | Patient Health Record ---
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 Primary Care Provider [facility] Unavailable Unavailable Allergies Allergen (clinical drug ingredient) [...] Results Component Value Reference Range Flag Notes Comprehensive Metabolic Pane l (CMP) [id number] Reviewed date:05/31/2024 11:23:50 AM Interpretation: Performing Lab: Notes/Report: Diagnosis Description: Essential (primary) hypertension Glucose Serum 199 71-110 MG/DL HI Testing p erformed at [facility], [address] [place] [address] [place] [address]. CLIA ID#: [id number] BUN 20 7-21 MG/DL Creat .62 .51-1.17 MG/DL X-yyuupf-i-benzoquinon e imine (NAPQI) is a metabolite of acetaminophen, [...] the potential for falsely depressed results. GFR 98.1 NA Calculation pe rformed from GFR calculator provided by the [employer]. Glomerular Filtration rate(GRF) is the best overall index of kidney function. Normal GFR varies according to age,sex, body size, and declines with age. The National Kid[employer] Foundation recommends using the CKD-EPI Creatinine Equation(2020) to estimate GFR. BUN/Creat Ratio 32.3 12.0-20.0 % HI Total Protein 6.4 5.8-8.0 G/DL Albumin 4.2 3.2-4.8 G/DL Globulin 2.2 2.3-3.5 G/DL LOW Alb/Glob 1.9 0.8-2.2 Calcium 9.4 8.7-10.4 MG/DL Sodium 141 136-145 MMOL/L Potassium 4.0 3.5-5.1 MMOL/L Chloride 106 98-107 MMOL/L CO2 29.2 20.0-31.0 MMOL/L Anion Gap 10 5-15 Alk Phos 76 46-116 Bili Total .5 .3-1.2 MG/DL Use of this assay is not recommended for patients undergoing treatment with eltrombopag due to the potential for falsely elevated results. AST/SGOT 18 15-37 UNIT/L ALT/SGPT 22 12-78 UNIT/L Osmo Serum,Calculated 300 280-300 MOSM/KG CBC w\ Auto Diff 13935 Reviewed date:05/31/2024 11:21:13 AM Interpretation: Performing Lab: Notes/Report: Diagnosis Description: Essential (primary) hypertension WBC 6.8 4.5-11.0 X10'3 RBC 4.36 4.00-5.20 X10'6 Hgb 12.5 12.0-16.0 G/DL Hct 40.0 36.0-46.0 % MCV 91.7 80.0-100.0 FL MCH 28.7 27.0-31.0 PG MCHC 31.3 31.0-37.0 G/DL Platelet 128 150-400 X10'3 LOW RDW-SD 49.1 35.0-49.0 FL HI RDW-CV 14.3 12.2-15.6 % MPV Not Reportable 9.2-12.0 FL NA Neutro Auto% 40.3 40.0-70.0 % Lymph Auto% 47.9 22.0-44.0 % HI Moore Auto% 8.1 3.0-7.0 % HI Eos Auto% 3.0 2.0-4.0 % Baso Auto% 0.6 0.0-1.0 % Imm Gran% .1 .0-.4 % Neutro Abs 2.72 .80-7.70 Absolute Neutrophil Count 2720 NA Lymph Abs 3.24 .10-4.10 Moore Abs .55 .20-1.00 Eos Abs .20 .00-.40 Baso Abs .04 .00-.20 Imm Gran Abs .01 .00-.10 NRBC# .00 .00-.20 X10'3 NRBC% .00 .00-.20 /100 intact WBC's Lipid Panel Reflex DLDL 8006 1, 67235 Reviewed date:05/31/2024 11:21:28 AM Interpretation: Performing Lab: Notes/Report: Diagnosis Description: Hyperlipidemia, unspecified Trig 160 NA Classification Guidelines:Triglyceride s Adults: >20yrs Desirable <150 Borderline High 150-199 High 200-499 Very high >=500 Children: Male 0-4 yr 22-99 5-9 yr 30-101 10-14 yr 32-125 15-19 yr 37-148 Children: Female 0-4 yr 34-112 5-9 yr 32-105 10-14 yr 37-131 15-19 yr 39-132 Chol 160 <=200 MG/DL HDL 44 39-96 MG/DL Reference Ranges:HDL Male: 5-9y 38-75 10-14y 37-74 15-19y 30-63 >=20y 40-59 Female: 5-9y 36-73 10-14y 37-70 15-19y 35-74 >=20y 40-59 CH/HDL 3.6 0.0-4.9 RATIO LDL 84 0-130 MG/DL LDL result is inaccurate , if Trig is >400 mg/dl. See DLDL result. 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 >7.0 % diabetics. EAG 212 NA Estimated Aver age Glucose(EAG). Immature PLT Fraction 38059 Reviewed date:03/01/2024 10:13:00 AM Interpretation: Performing Lab: Notes/Report: Immature PLT Fraction 19.3 1.6-4.9 % HI Platelet 137 150-400 X10'3 LOW WBC Auto Diff--86911 Reviewed date:03/01/2024 10:12:20 AM Interpretation: Performing Lab: Notes/Report: Added by Discern Rules Neutro Auto% 58.2 40.0-70.0 % Lymph Auto% 29.4 22.0-44.0 % Moore Auto% 8.7 3.0-7.0 % HI Eos Auto% 2.9 2.0-4.0 % Baso Auto% 0.5 0.0-1.0 % NRBC% .00 .00-.20 /100 intact WBC's Neutro Abs 5.08 .80-7.70 Absolute Neutrophil Count 5080 NA Lymph Abs 2.56 .10-4.10 Moore Abs .76 .20-1.00 Eos Abs .25 .00-.40 Baso Abs .04 .00-.20 NRBC# .00 .00-.20 X10'3 Imm Gran Abs .03 .00-.10 Imm Gran% .3 .0-.4 % Hemoglobin A1c 78416 Reviewed date:03/01/2024 10:14:22 AM Interpretation: Performing Lab: Notes/Report: Diagnosis Description: Type 2 diabetes mellitus with hyperglycemia Hgb A1c 9.3 3.8-6.4 % HI Interpretation Of Hgb A1c: 4.5-6.2 % nondiabetics. >7.0 % diabetics. EAG 220 NA Estimated Aver age Glucose(EAG). Comprehensive Metabolic Pane l (CMP) 25883 Reviewed date:03/01/2024 10:14:11 AM Interpretation: Performing Lab: Notes/Report: Diagnosis Description: Essential (primary) hypertension Glucose Serum 210 71-110 MG/DL HI Testing p erformed at [facility], [address] [place] [address] [place] [address]. CLIA ID#: [id number] BUN 26 7-21 MG/DL HI Creat .67 .51-1.17 MG/DL I-zmmmkl-c-benzoquinon e imine (NAPQI) is a metabolite of acetaminophen, [...] the potential for falsely depressed results. GFR 96.3 NA Calculation pe rformed from GFR calculator provided by the National [employer]. Glomerular Filtration rate(GRF) is the best overall index of kidney function. Normal GFR varies according to age,sex, body size, and declines with age. The National Kidney Foundation recommends using the CKD-EPI Creatinine Equation(2020) to estimate GFR. BUN/Creat Ratio 38.8 12.0-20.0 % HI Total Protein 6.4 5.8-8.0 G/DL Albumin 4.1 3.2-4.8 G/DL Globulin 2.2 2.3-3.5 G/DL LOW Alb/Glob 1.9 0.8-2.2 Calcium 9.3 8.7-10.4 MG/DL Sodium 139 136-145 MMOL/L Potassium 4.0 3.5-5.1 MMOL/L Chloride 106 98-107 MMOL/L CO2 25.1 20.0-31.0 MMOL/L Anion Gap 12 5-15 Alk Phos 85 46-116 Bili Total .3 .3-1.2 MG/DL Use of this assay is not recommended for patients undergoing treatment with eltrombopag due to the potential for falsely elevated results. AST/SGOT 16 15-37 UNIT/L ALT/SGPT 18 12-78 UNIT/L Osmo Serum,Calculated 299 280-300 MOSM/KG CBC Reflex Man Diff 96786, 8 5006 Reviewed date:03/01/2024 10:14:33 AM Interpretation: Performing Lab: Notes/Report: Diagnosis Description: Thrombocytopenia, unspecified WBC 8.7 4.5-11.0 X10'3 RBC 4.48 4.00-5.20 X10'6 Hgb 13.0 12.0-16.0 G/DL Hct 41.8 36.0-46.0 % MCV 93.3 80.0-100.0 FL MCH 29.0 27.0-31.0 PG MCHC 31.1 31.0-37.0 G/DL Platelet 137 150-400 X10'3 LOW RDW-SD 45.2 35.0-49.0 FL RDW-CV 13.1 12.2-15.6 % MPV 14.2 9.2-12.0 FL HI Review Auto Diff Conf Immature PLT Fraction 99422 Reviewed date:11/25/2023 04:38:33 PM Interpretation: Performing Lab: Notes/Report: Immature PLT Fraction 22.1 1.6-4.9 % HI Platelet 138 150-400 X10'3 LOW Microalbumin (U) Random 8204 3 Reviewed date:11/25/2023 04:33:16 PM Interpretation: Performing Lab: Notes/Report: Diagnosis Description: Type 2 diabetes mellitus without complications Ur Microalbumin 234.0 .0-30.0 MG/L HI Ur Creat 80.2 29.0-226.0 Mal/Crea/Ratio 291.8 .0-30.0 mg Alb/g Cr HI Hemoglobin A1c 21287 Reviewed date:11/25/2023 04:32:52 PM Interpretation: Performing Lab: Notes/Report: Diagnosis Description: Type 2 diabetes mellitus without complications Hgb A1c 9.2 3.8-6.4 % HI Interpretation Of Hgb A1c: 4.5-6.2 % nondiabetics. >7.0 % diabetics. EAG 217 NA Estimated Aver age Glucose(EAG). Thyroid Stimulating Hormone (TSH) 13249 Reviewed date:11/25/2023 04:32:35 PM Interpretation: Performing Lab: Notes/Report: Diagnosis Description: Hypothyroidism, unspecified TSH 4.024 .358-3.740 MlU/ML HI Lipid Panel Reflex DLDL 8006 1, 99982 Reviewed date:11/25/2023 04:31:00 PM Interpretation: Performing Lab: Notes/Report: Diagnosis Description: Hyperlipidemia, unspecified Trig 193 NA Classification Guidelines:Triglyceride s Adults: >20yrs Desirable <150 Borderline High 150-199 High 200-499 Very high >=500 Children: Male 0-4 yr 22-99 5-9 yr 30-101 10-14 yr 32-125 15-19 yr 37-148 Children: Female 0-4 yr 34-112 5-9 yr 32-105 10-14 yr 37-131 15-19 yr 39-132 Chol 195 <=200 MG/DL HDL 50 39-96 MG/DL Reference Ranges:HDL Male: 5-9y 38-75 10-14y 37-74 15-19y 30-63 >=20y 40-59 Female: 5-9y 36-73 10-14y 37-70 15-19y 35-74 >=20y 40-59 CH/HDL 3.9 0.0-4.9 RATIO LDL 107 0-130 MG/DL LDL result is inaccurate , if Trig is >400 mg/dl. See DLDL result. CBC w\ Auto Diff 96861 Reviewed date:11/25/2023 04:32:17 PM Interpretation: Performing Lab: Notes/Report: Diagnosis Description: Essential (primary) hypertension WBC 8.0 4.5-11.0 X10'3 RBC 4.50 4.00-5.20 X10'6 Hgb 13.0 12.0-16.0 G/DL Hct 42.3 36.0-46.0 % MCV 94.0 80.0-100.0 FL MCH 28.9 27.0-31.0 PG MCHC 30.7 31.0-37.0 G/DL LOW Platelet 138 150-400 X10'3 LOW RDW-SD 50.4 35.0-49.0 FL HI RDW-CV 14.5 12.2-15.6 % MPV 14.4 9.2-12.0 FL HI Neutro Auto% 38.7 40.0-70.0 % LOW Lymph Auto% 50.5 22.0-44.0 % HI Moore Auto% 6.7 3.0-7.0 % Eos Auto% 3.0 2.0-4.0 % Baso Auto% 0.8 0.0-1.0 % Imm Gran% .3 .0-.4 % Neutro Abs 3.09 .80-7.70 Absolute Neutrophil Count 3090 NA Lymph Abs 4.02 .10-4.10 Moore Abs .53 .20-1.00 Eos Abs .24 .00-.40 Baso Abs .06 .00-.20 Imm Gran Abs .02 .00-.10 NRBC# .00 .00-.20 X10'3 NRBC% .00 .00-.20 /100 intact WBC's Comprehensive Metabolic Pane l (CMP) 82899 Reviewed date:11/25/2023 04:30:35 PM Interpretation: Performing Lab: Notes/Report: Diagnosis Description: Essential (primary) hypertension Glucose Serum 231 71-110 MG/DL HI Testing p erformed at [facility], [address] [place] [address] [place] [address]. CLIA ID#: [id number] BUN 21 7-21 MG/DL Creat .65 .51-1.17 MG/DL C-vmzeuq-s-benzoquinon e imine (NAPQI) is a metabolite of acetaminophen, [...] the potential for falsely depressed results. GFR 97.3 NA Calculation pe rformed from GFR calculator provided by the National Kidney Foundation. Glomerular Filtration rate(GRF) is the best overall index of kidney function. Normal GFR varies according to age,sex, body size, and declines with age. The National Kidney Foundation recommends using the CKD-EPI Creatinine Equation(2020) to estimate GFR. BUN/Creat Ratio 32.3 12.0-20.0 % HI Total Protein 6.2 5.8-8.0 G/DL Albumin 4.0 3.2-4.8 G/DL Globulin 2.2 2.3-3.5 G/DL LOW Alb/Glob 1.8 0.8-2.2 Calcium 9.1 8.7-10.4 MG/DL Sodium 141 136-145 MMOL/L Potassium 3.9 3.5-5.1 MMOL/L Chloride 106 98-107 MMOL/L CO2 24.2 20.0-31.0 MMOL/L Anion Gap 15 5-15 Alk Phos 68 46-116 Bili Total .4 .3-1.2 MG/DL Use of this assay is not recommended for patients undergoing treatment with eltrombopag due to the potential for falsely elevated results. AST/SGOT 16 15-37 UNIT/L ALT/SGPT 21 12-78 UNIT/L Osmo Serum,Calculated 302 280-300 MOSM/KG HI Immature PLT Fraction [id number] Reviewed date:05/31/2024 11:24:57 AM Interpretation: Performing Lab: Notes/Report: Immature PLT Fraction 18.0 1.6-4.9 % HI Platelet 128 150-400 X10'3 LOW Immature PLT Fraction 17930 Reviewed date:11/11/2024 01:33:49 PM Interpretation:Abnormal Performing Lab: Notes/Report: Immature PLT Fraction 18.9 1.6-4.9 % HI Platelet 130 150-400 X10'3 LOW Hemoglobin A1c 84702 Reviewed date:11/11/2024 01:33:49 PM Interpretation:High Performing Lab: Notes/Report: Diagnosis Description: senior care (current) use of insulin Hgb A1c 8.9 3.8-6.4 % HI Interpretation Of Hgb A1c: 4.5-6.2 % nondiabetics. >7.0 % diabetics. EAG 209 NA Estimated Aver age Glucose(EAG). 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 TSH 2.837 .358-3.740 MlU/ML Microalbumin (U) Random 8204 3 Reviewed date:11/11/2024 01:33:49 PM Interpretation:High Performing Lab: Notes/Report: Diagnosis Description: Type 2 diabetes mellitus with diabetic polyneuropathy Ur Microalbumin 61.0 .0-30.0 MG/L HI Ur Creat 77.6 29.0-226.0 Mal/Crea/Ratio 78.6 .0-30.0 mg Alb/g Cr HI Lipid Panel Reflex DLDL 8008 1, 92192 Reviewed date:11/11/2024 01:33:49 PM Interpretation:High Performing Lab: Notes/Report: Diagnosis Description: Essential (primary) hypertension Trig 170 NA Classification Guidelines:Triglyceride s Adults: >20yrs Desirable <150 Borderline High 150-199 [...] Trig is >400 mg/dl. See DLDL result. CBC w\ Auto Diff 78702 Reviewed date:11/11/2024 01:33:49 PM Interpretation:Abnormal Performing Lab: [...] LOW Lymph Auto% 48.4 22.0-44.0 % HI Moore Auto% 7.9 3.0-7.0 % HI Eos Auto% 2.8 2.0-4.0 % Baso Auto% 0.9 0.0-1.0 % Imm Gran% .3 .0-.4 % Neutro Abs 3.19 .80-7.70 Absolute Neutrophil Count 3190 NA Lymph Abs 3.87 .10-4.10 Moore Abs .63 .20-1.00 Eos Abs .22 .00-.40 Baso Abs .07 .00-.20 Imm Gran Abs .02 .00-.10 NRBC# .00 .00-.20 X10'3 NRBC% .00 .00-.20 /100 intact WBC's Comprehensive Metabolic Pane l (CMP) 23690 Reviewed date:11/11/2024 01:33:49 PM Interpretation:Abnormal Performing Lab: Notes/Report: Diagnosis Description: Essential (primary) hypertension Glucose Serum 207 71-110 MG/DL HI Testing p erformed at [facility], [address] [place] [address] [place] [address]. CLIA ID#: [id number] BUN 22 7-21 MG/DL HI Creat .61 .51-1.17 MG/DL I-izyzmp-m-benzoquinon e imine (NAPQI) is a metabolite of acetaminophen, [...] UNIT/L Osmo Serum,Calculated 303 280-300 MOSM/KG HI Reason For Referral Reason low platelets Diagnosis 1 Low platelet count ( D69.6) Referral Organization [facility] Referring Provider First Name Rebekah Referring Provider Last Name Hinojosa Referring Provider Speciality Nurse Axel knutson Referred Provider [facility] Referred Provider Specialty Oncology General Notes Irene Wei 11/0 06/2023 11:02:14 AM >See referral notes. Referral Priority Routine Referral Appointment Date 12/25/2023 Medications Medication SIG (Take, Route, Frequency, Duration) Notes Start Date End Date Status Vitamin C 1000 MG Tablet 1 tablet Orally Once a day Active Lisinopril 2.5 mg Tablet TAKE ONE TABLET BY MOUTH THREE TIMES DAILY; Duration: 30 Active Loratadine 10 MG Tablet Disintegrating 1 tablet on the tongue and allow to dissolve Orally Once a day Active Mucinex 600 mg Tablet Extended Release 12 Hour TAKE ONE TABLET BY MOUTH EVERY TWELVE HOURS; Duration: 60 Active BD Insulin Syringe U/F 31G X 5/16 0.5 ML Miscellaneous USE DIRECTED NEEDED; Duration: 30 Active NovoLIN 70/30 ReliOn (70-30) 100 UNIT/ML Suspension INJECT 24 UNITS SUBCUTANEOUSLY TWICE DAILY OR DIRECTED; Duration: 30 Active Multi Vitamin - Tablet 1 tablet Orally O nce a day Active Mounjaro 2.5 MG/0.5ML Solution Auto-injector 2.5 mg Subcutaneous weekly; Duration: 30 days 07/02/2024 Not-Taking Zinc 50 MG Tablet 1 tablet Orally Once a day Active glyBURIDE 5 MG Tablet TAKE 2 TABLETS BY MOUTH TWICE DAILY AFTER A MEAL; Duration: 30 Active B Complex - Capsule as directed Orally Active Famotidine 40 mg Tablet TAKE ONE TABLET BY MOUTH EVERY DAY; Duration: 30 Active Aspirin 81 81 MG Tablet Delayed Release 1 tablet Orally Once a day Active traMADol HCl 50 mg Tablet TAKE ONE TABLET BY MOUTH EVERY 4 HOURS NEEDED FOR SEVERE pain FOR 30 DAYS. NEXT FILL 02/16/2024 FOR HOLIDAY.; Duration: 30 04/15/2024 Active Zepbound 2.5 MG/0.5ML Solution Auto-injector 2.5 mg Subcutaneous weekly; Duration: 30 days for cardiovascular risk reduction 11/08/2024 Active Triamterene-HCTZ 37.5-25 MG Tablet TAKE ONE TABLET BY MOUTH EVERY DAY NEEDED FOR swelling; Duration: 30 Active Triamcinolone Acetonide 0.1 % Cream APPLY topically TWICE DAILY DIRECTED; Duration: 30 Active Ventolin HFA 108 (90 Base) MCG/ACT Aerosol Solution INHALE TWO PUFFS FOUR TIMES A DAY NEEDED; Duration: 25 Active Immunizations Vaccine Route Administration Date Status Comme nts Flucelvax Trivalent, Syringe 0.5 mL, PF Unknown 12/26/2023 Contraindications Social History Tobacco Use: Social History Observation [...] way Not at all Total Score 0 Drugs/Alcohol: Social Info Question Answer Notes Alcohol Screen (Audit-C) Did you have a drink containing alcohol in the past year? No Points 0 Interpretation Negative Drugs Have you used drugs other than those for medical reasons in the past 12 months? No Tobacco Use: Social Info Question Answer Notes Tobacco Control (Standard) Tobacco use: Nonsmoker Additional Details Category Social Info Options Details Drugs/Alcohol: Do you smoke marijuana? De nies Do you drink alcohol? No Section Notes: 04/29/2022 PHQ-9 04/29/2022 PHQ-9 04/29/2022 PHQ-9 04/29/2022 PHQ-9 04/29/2022 PHQ-9 Depression screen completed 11/24/2023 score 0 Depression screen completed 11/24/2023 score 0 Depression screen completed 11/24/2023 score 0 Depression screen completed 11/24/2023 score 0 Depression screen completed 11/24/2023 score 0 Depression screen completed 11/24/2023 score 0 Depression screen completed 11/24/2023 score 0, PHQ9 11/08/2024 04/29/2022 PHQ-9 Problems Problem Type SNOMED Code ICD Code Onset Dates Problem Status W/U Status Risk Notes Problem Ketoacidosis in type I diabetes mellitus (609996567) Type 1 diabetes mellitus with ketoacidosis without coma (E10.10) Active confirmed Problem Type II diabetes mellitus without complication (767637028) Type 2 diabetes mellitus without complications (E11.9) Active confirmed Problem Morbid obesity (disorder) (592052332) Morbid (severe) obesity due to excess calories (E66.01) Active confirmed Problem Chronic pain (65421101) Other chronic pain (G89.29) Active confirmed Problem Localized edema (9177297) Localized edema (R60.0) Active confirmed Problem Long-term current use of insulin (220367275) senior care (current) use of insulin (Z79.4) Active confirmed Problem Hyperglycemia due to type 2 diabetes mellitus (335908996608540) Type 2 diabetes mellitus with hyperglycemia (E11.65) Active confirmed Problem Osteoarthritis (306554117) Osteoarthritis, unspecified osteoarthritis type, unspecified site (M19.90) Active confirmed Problem Hypothyroidism (15454834) Hypothyroidism, unspecified type (E03.9) Active confirmed Problem Polyneuropathy due to type 2 diabetes mellitus (328190693) Diabetic polyneuropathy associated with type 2 diabetes mellitus (E11.42) Active confirmed Problem Hyperlipidaemia (85677705) Hyperlipidemia, unspecified hyperlipidemia type (E78.5) Active confirmed Problem Body mass index 40+ - severely obese (756325576) BMI 45.0-49.9, adult (Z68.42) Active confirmed Problem Thrombocytopenia (050570653) Thrombocytopenia (D69.6) Active confirmed Problem Morbid obesity (139704199) Morbid obesity (E66.01) Active confirmed Problem Hyperlipidemia (91843330) Hyperlipidemia (E78.5) Active confirmed Problem Environmental allergy (055175988) Environmental allergies (Z91.09) Active confirmed Problem Body mass index 40+ - severely obese (800659458) Body mass index [BMI] 45.0-49.9, adult (Z68.42) Active confirmed Problem Body mass index 40+ - morbidly obese (258246828) Body mass index [BMI] 50.0-59.9, adult (Z68.43) Active confirmed Problem Morbid obesity (384808270) Morbid obesity with body mass index (BMI) of 40.0 or higher (E66.01) Active confirmed Problem Hysterectomy (881453470) Absence of uterus (Z90.710) 024 Active confirmed Problem Primary hypertension (90693376) Primary hypertension (I10) Active confirmed Problem Thrombocytopenic disorder (633190097) Low platelet count (D69.6) Active confirmed Problem Hyperglycemia due to type 1 diabetes mellitus (728689047729099) Hyperglycemia due to type 1 diabetes mellitus (E10.65) Active confirmed Vital Signs Heart Rate 64 /min 11/08/2024 Temperature 97.7 degrees Fahrenheit 11/08/2024 Respiratory Rate 20 /min 11/08/2024 Height-cm 160.02 cm 11/08/2024 Oximetry 97 % 11/08/2024 Blood pressure diastolic 64 mm Hg 11/08/2024 Weight-kg 126.55 kg 11/08/2024 Height 63 in 11/08/2024 Blood pressure systolic 122 mm Hg 11/08/2024 Weight 279 lbs 11/08/2024 BMI 49.42 kg/m2 11/08/2024 Encounters Encounter Location Date Provider Diagnosis [facility] [address] [address] 11/24/2023 [facility] senior care (current) use of insulin Z79.4 ; Primary hypertension I10 ; Hypothyroidism, unspecified type E03.9 ; Diabetic polyneuropathy associated with type 2 diabetes mellitus E11.42 ; Depression screen Z13.31 ; Hyperlipidemia, unspecified hyperlipidemia type E78.5 and Type 2 diabetes mellitus without complications E11.9 [facility] [address] [address] 12/08/2023 [facility] Low platelet count D 69.6 ; Microalbuminuria R80.9 ; senior care (current) use of insulin Z79.4 and Diabetic polyneuropathy associated with type 2 diabetes mellitus E11.[address] [address] 12/26/2023 [facility] Absence of uterus Z9 0.710 ; senior care (current) use of insulin Z79.4 ; Type 2 diabetes mellitus with hyperglycemia E11.65 ; Low platelet count D69.6 and Primary hypertension I10 [address] [address] 02/27/2024 [facility] Thrombocytopenia D69 .6 ; Primary hypertension I10 ; 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 Z79.4 and Type 2 diabetes mellitus with hyperglycemia E11.[address] [address] 05/28/2024 [facility] Otitis media H66.90 ; 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 Z79.4 ; exterminator (current) use of oral hypoglycemic drugs Z79.84 ; Diabetic polyneuropathy associated with type 2 diabetes mellitus E11.42 ; Hypothyroidism, unspecified type E03.9 ; Primary hypertension I10 and Hyperlipidemia E78.[address] [address] 07/02/2024 [facility] senior care (current) use of oral hypoglycemic drugs Z79.84 ; senior care (current) use of insulin Z79.4 ; Type 2 diabetes mellitus with hyperglycemia E11.65 and Primary hypertension I10 [address] [address] 11/08/2024 [facility] 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 Z79.4 ; Primary hypertension I10 ; Diabetic polyneuropathy associated with type 2 diabetes mellitus E11.42 ; Morbid obesity with body mass index (BMI) of 40.0 or higher E66.01 and Depression screen Z13.[address] [address] 11/24/[address] [address] 01/19/2024 [facility] [address] [address] 02/05/2024 [facility] [address] [facility] [address] [place] [address] 03/04/2024 [facility] Thrombocytopenia D69 .6 and Primary hypertension I10 [facility] [address] [address] 10/18/2024 [facility] Assessments Encounter Date Diagnosis (ICD Code) Assessment Notes Treatment Notes Treatment Clinical Notes Section Notes 11/24/2023 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 (ICD-10 - Z79.4) continue meds 11/24/2023 Primary hypertension (ICD-10 - I10) lisinopril cbc cmp 12/08/2023 Low platelet count (ICD-10 - D69.6) refer [facility] hematology 12/08/2023 Microalbuminuria (ICD-10 - R80.9) 12/26/2023 Absence of uterus (ICD-10 - Z90.710) 12/26/2023 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 (ICD-10 - Z79.4) continue meds monitor bs 02/27/2024 Thrombocytopenia (ICD-10 - D69.6) cbc with manual diff 02/27/2024 Primary hypertension (ICD-10 - I10) lisinopril 05/28/2024 Otitis media (ICD-10 - H66.90) cephalexin 05/28/2024 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 (ICD-10 - Z79.4) ha1c 07/02/2024 exterminator (current) use of oral hypoglycemic drugs (ICD-10 - Z79.84) 07/02/2024 senior care (current) use of insulin (ICD-10 - Z79.4) continue meds 11/08/2024 senior care (current) use of insulin (ICD-10 - Z79.4) continue meds ha1c tsh 11/08/2024 Primary hypertension (ICD-10 - I10) continue meds cbc cmp lipids 03/04/2024 Thrombocytopenia (ICD-10 - D69.6) 03/04/2024 Primary hypertension (ICD-10 - I10) 11/08/2024 Diabetic polyneuropathy associated with type 2 diabetes mellitus (ICD-10 - E11.42) 07/02/2024 Type 2 diabetes mellitus with hyperglycemia (ICD-10 - E11.65) mounjaro 05/28/2024 exterminator (current) use of oral hypoglycemic drugs (ICD-10 - Z79.84) continue meds 02/27/2024 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 (ICD-10 - Z79.4) continue meds 12/26/2023 Type 2 diabetes mellitus with hyperglycemia (ICD-10 - E11.65) 12/08/2023 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 (ICD-10 - Z79.4) novulin 11/24/2023 Hypothyroidism, unspecified type (ICD-10 - E03.9) tsh 11/24/2023 Diabetic polyneuropathy associated with type 2 diabetes mellitus (ICD-10 - E11.42) ha1c conitnue meds 12/08/2023 Diabetic polyneuropathy associated with type 2 diabetes mellitus (ICD-10 - E11.42) glyburide 12/26/2023 Low platelet count (ICD-10 - D69.6) hematology as planned 02/27/2024 Type 2 diabetes mellitus with hyperglycemia (ICD-10 - E11.65) continue meds monitor bs 05/28/2024 Diabetic polyneuropathy associated with type 2 diabetes mellitus (ICD-10 - E11.42) insulin glyburide 07/02/2024 Primary hypertension (ICD-10 - I10) lisinopril 11/08/2024 Morbid obesity with body mass index (BMI) of 40.0 or higher (ICD-10 - E66.01) zepbound; for cardiolvascular risk reduction 11/08/2024 Depression screen (ICD-10 - Z13.31) 05/28/2024 Hypothyroidism, unspecified type (ICD-10 - E03.9) tsh 12/26/2023 Primary hypertension (ICD-10 - I10) 11/24/2023 Depression screen (ICD-10 - Z13.31) 05/28/2024 Primary hypertension (ICD-10 - I10) cbc cmp continue meds 05/28/2024 Hyperlipidemia (ICD-10 - E78.5) lipids 11/24/2023 Hyperlipidemia, unspecified hyperlipidemia type (ICD-10 - E78.5) 11/24/2023 Type 2 diabetes mellitus without complications (ICD-10 - E11.9) 11/24/2023 Other Questions asked and answered; discharged to home. Venipuncture : Performed by: Santiago WHITE Attempts:x1 Location: RAC Needle gauge: 21g Patient tolerated well. 12/08/2023 Other Questions asked and answered; discharged to home. 12/26/2023 Other Questions asked and answered; discharged to home. 02/27/2024 Other Questions asked and answered; discharged to home. Venipuncture : Performed by: Santiago WHITE Attempts: x1 Location: RAC Needle gauge: 21g Patient tolerated well. 05/28/2024 Other Questions asked and answered; discharged to home. Venipuncture : Performed by: Santiago WHITE Attempts: x1 Location: RAC Needle gauge: 21g Patient tolerated well. 07/02/2024 Other Questions asked and answered; discharged to home. 11/08/2024 Other Questions asked and answered; discharged to home. Venipuncture : Performed by:Santiago WHITE Attempts:x1 Location:RAC Needle gauge:22g Patient tolerated well. Plan Of Treatment Future Test Test Name Order Date CBC w\ Auto Diff [id number] 04/15/2024 Comprehensive Metabolic Panel (CMP) 8005 3 04/15/2024 Next Appt Details Provider Name:Rebekah Hinojosa, 12/13/2024 10:20:00 AM, [address] [place] [address], [phone], Insurance Providers Payer Name Payer Address Payer Phone Subscriber Number Group Number Insured Name Patient Relationship to Insured Coverage Start Date Coverage End Date [place] Medicaid [address] [place] [address] [phone] [id number] Nevaeh Segura Self - patient is the insured Medical (General) History Medical History History ICD Code measles chronic bladder infections anemia epilepsy diabetes mellitus Back Trouble High Blood Pressure Low Blood Pressure hemorrhoids asthma hives bronchitis anxiety fatty liver irritable bowel syndrome kidney stones Rashes, Skin Problems Hypothyroidism Surgical History Surgery Date(Month/Year) hysterectomy 2000 cholecystectomy 1989 appendectomy 1982 tubal ligation 1982 tonsillectomy 1960 Hospitalization History Reason Date(Month/Year) seizure 2013 high blood sugar 2015 childbirth see surgery hx
--- OUTSIDE RECORDS SUMMARY | 2024-11-13 14:35 | XMS_ITS | Clinical Summary ---
Author Organization [facility] Address [address] Attn: Epic Prelude ADT RAMIREZ GIORDANO [id number] Care Team Providers Care Embosser Operator Name Role Phone Unavailable Primary Care Provider [...] by subcutaneous injection 2 times daily. 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
--- OUTSIDE RECORDS SUMMARY | 2024-11-13 14:35 | XMS_ITS | Clinical Summary ---
Author Organization [facility] Address [address] [place] [address] Phone Care Team Providers Care Community Engagement Manager Name Role Phone Unavailable Primary Care Provider [...]
--- NOTE | 2024-11-13 14:55 | W.ED.NAVMDI ---
HPI - Nausea/Vomiting/Diarrhea General: Chief complaint: Nausea/Vomiting/Diarrhea Stated complaint: N/V Time Seen by Provider: 11/13/24 14:34 Source: patient Mode of arrival: ambulatory Limitations: no limitations History of Present Illness: 64-year-old female was seen here yesterday was diagnosed with a kidney stone she states that she believes she passed a kidney stone but has been having vomiting diarrhea now. States she is having some weakness due to the vomiting and diarrhea. She denies abdominal pain besides some mild cramping she denies fever she denies any worse improving factors. Associated nausea: Yes Associated symtoms: Reports nausea; Denies chest pain, dysuria or headache(s) Related Data Home Medications ?Medication ?Instructions ?Recorded ?Confirmed glyburide 5 mg tablet 10 mg PO BID 12/25/23 11/13/24 insulin human U-100 NPH-regulr 2.5 unit SUBCUT BID 12/25/23 11/13/24 70-30 mix 100 unit/mL subcutaneous susp (Novolin 70/30 U-100 Insulin) lisinopril 2.5 mg tablet 2.5 mg PO TID 12/25/23 11/13/24 Previous Rx's ?Medication ?Instructions ?Recorded hydrocodone 5 mg-acetaminophen 325 1 tab PO Q6H PRN pain #14 tabs 11/12/24 mg tablet ondansetron 4 mg disintegrating 4 mg PO Q6H PRN nausea and 11/12/24 tablet vomiting #14 tabs tamsulosin 0.4 mg capsule (Flomax) 0.4 mg PO DAILY #5 caps 11/12/24 Allergies Allergy/AdvReac Type Severity Reaction Status Date / Time amoxicillin Allergy Unknown Dizziness Verified 12/25/23 08:19 ciprofloxacin Allergy Unknown ALGY-Hives Verified 12/25/23 08:19 levothyroxine Allergy Unknown ALGY-Rash Verified 12/25/23 08:19 Sulfa (Sulfonamide Allergy Unknown ALGY-Rash Verified 12/25/23 08:19 Antibiotics) Influenza vaccine Allergy Unknown Unknown Uncoded 12/25/23 08:19 steroid shot Allergy Unknown Seizure Uncoded 12/25/23 08:19 Review of Systems Const: Denies: fever(s), chills, body aches or change in appetite ENMT: Denies: throat pain or dental pain Card: Denies: chest pain Resp: Denies: dyspnea GI: Reports: nausea and vomiting; Denies: abdominal pain or diarrhea : Denies: dysuria Musc: Denies: neck pain or back pain Skin/Breast: Denies: rash Neuro: Denies: headache(s) PFSH ED PFSH: Social History Smoking and tobacco/nicotine status: never used tobacco/nicotine Physical Exam Const: COMMON NORMALS: no acute distress, patient oriented x3 and healthy appearing HENMT: COMMON NORMALS: normocephalic and atraumatic HEAD & SCALP: normocephalic and atraumatic Eye: COMMON NORMALS: conjunctivae normal CONJUNCTIVA: Yes conjunctivae normal Neck/C-Spine: COMMON NORMALS: full ROM and supple Chest: COMMONS NORMALS: normal inspection of the chest Resp: COMMON NORMALS: normal respiratory effort, No retractions, No use of accessory muscles and clear to auscultation bilaterally AUSCULTATION: clear to auscultation bilaterally Cardio: COMMON NORMALS: regular rate, regular rhythm and No murmurs present (Cardio) RATE: regular rate RHYTHM: regular rhythm GI: COMMON NORMALS: Normal to inspection, nondistended, normoactive bowel sounds present, Soft to palpation, non-tender and no masses PALPATION: Yes Soft to palpation Extremity: COMMON NORMALS: normal to inspection and full ROM Neuro: COMMON NORMALS: patient oriented x3, moves all extremities and no focal motor deficits Psych: COMMON NORMALS: mental status grossly normal, Normal thought process present and cooperative THOUGHT PROCESS: Normal thought process present Skin: COMMON NORMALS: no rashes or lesions noted and no wounds GENERAL SKIN EXAM: no rashes or lesions noted Course Vital Signs: Vital signs: Vital Signs Temperature 98.1 F 11/13/24 14:44 Pulse Rate 90 11/13/24 16:52 Respiratory Rate 18 11/13/24 14:44 Blood Pressure 99/50 11/13/24 16:52 Pulse Oximetry 94 11/13/24 16:52 Oxygen Delivery Me thod Room Air 11/13/24 14:44 MDM - Nausea/Vomiting/Diarrhea Medical Decision Making Patient presents here with vomiting she does have a UTI along with dehydration and likely sepsis. Her blood pressure here improved after IV fluids last blood pressure was 99/50. Patient was started on weight-based sepsis bolus of fluids along with antibiotics. CT shows a kidney stone has passed. I did speak to hospitalist Dr. Ruth will admit this time I did go over all the findings with patient and informed them of admission. Medical Records I reviewed the patient's medical records. Lab Data I reviewed the patient's lab results. 11/13/24 15:04 11/13/24 15:04 Radiology Impressions Abdomen/Pelvis CT 11/13/24 15:23 IMPRESSION: 1. 2 mm subpleural nodule laterally in the right lower lobe. For patients at low risk (minimal or absent history of smoking and of other known risk factors), no routine follow-up is indicated. For patients at high risk (history of smoking or of other known risk factors), consider optional CT Chest at 12 months. (Reference: Peace) 2. Previously noted left UPJ stone is no longer seen. Previously noted mild hydronephrosis of the left kidney has resolved. Perinephric fatty stranding remains. REFERENCES: Peace Holland, et al. Guidelines for Management of Incidental Pulmonary Nodules Detected on CT Images: From the Fleischner Society 2017. Radiology. 2017;284(1):228-243. Laboratory Results WBC 14.73 10^3/uL (3.29-11.43) H 11/13/24 15:04 RBC 4.07 10^6/uL (3.85-5.65) 11/13/24 15:04 Hgb 11.90 g/dL (11.27-16.99) 11/13/24 15:04 Hct 37.1 % (36-47) 11/13/24 15:04 MCV 91.2 fl (85-98) 11/13/24 15:04 MCH 29.2 pg (27-33) 11/13/24 15:04 MCHC 32.1 g/dL (30-55) 11/13/24 15:04 RDW 13.8 % (12.1-15.1) 11/13/24 15:04 Plt Count 78 10^3/cmm (157-399) L 11/13/24 15:04 MPV 14.2 fL (7.4-10.4) H 11/13/24 15:04 Lymph % (Auto) Not Reportable 11/13/24 15:04 [place] % (Auto) Not Reportable 11/13/24 15:04 Lymph # (Auto) Not Reportable 11/13/24 15:04 [place] # (Auto) Not Reportable 11/13/24 15:04 Total Counted 100 (0-100) 11/13/24 15:04 Atypical Lymphs % 0.0 % (0-5) 11/13/24 15:04 Absolute Neutrophils 11.2 10^3/cmm (1.4-6.5) H 11/13/24 15:04 Segmented Neutrophils 55 % 11/13/24 15:04 Band Neutrophils 21.0 % 11/13/24 15:04 Absolute Lymphocytes 1.9 10^3/cmm (1.2-3.4) 11/13/24 15:04 Lymphocytes (Manual) 13 % 11/13/24 15:04 Monocytes (Manual) 1.0 % 11/13/24 15:04 Absolute Monocytes 0.1 10^3/cmm (0.1-0.6) 11/13/24 15:04 Eosinophils (Manual) 0 % 11/13/24 15:04 Absolute Eosinophils 0.0 10^3/cmm (0.0-0.7) 11/13/24 15:04 Basophils (Manual) 0.0 % 11/13/24 15:04 Absolute Basophils 0.0 10^3/cmm (0.0-0.2) 11/13/24 15:04 Metamyelocytes 10.0 % 11/13/24 15:04 Platelet Estimate Decreased (Normal) L 11/13/24 15:04 Sodium 127 mmol/L (136-145) L 11/13/24 15:04 Potassium 4.3 mmol/L (3.5-5.1) 11/13/24 15:04 Chloride 91 mmol/L (98-107) L 11/13/24 15:04 Carbon Dioxide 20 mmol/L (22-29) L 11/13/24 15:04 Anion Gap 20.3 (5-19) H 11/13/24 15:04 BUN 38 mg/dL (8-23) H 11/13/24 15:04 Creatinine 1.5 mg/dL (0.5-0.9) H 11/13/24 15:04 GFR Calculation 34.7 mL/min (90-130) L 11/13/24 15:04 Glucose 220 mg/dL (65-115) H 11/13/24 15:04 Calculated Osmolality 280 mOsm/kg (285-295) L 11/13/24 15:04 Lactic Acid 2.7 mmol/L (0.5-2.2) H 11/13/24 15:04 Calcium 8.5 mg/dL (8.5-10.5) 11/13/24 15:04 Total Bilirubin 0.5 mg/dL (0.15-1.2) 11/13/24 15:04 AST 41 U/L (0-32) H 11/13/24 15:04 ALT 49 U/L (0-33) H 11/13/24 15:04 Alkaline Phosphatase 87 U/L (35-105) 11/13/24 15:04 Total Protein 6.1 g/dL (6.6-8.7) L 11/13/24 15:04 Albumin 3.1 g/dL (3.5-5.2) L 11/13/24 15:04 Globulin 3.0 g/dL (1.3-4.6) 11/13/24 15:04 Lipase 72 U/L (13-60) H 11/13/24 15:04 Urine Color Dark yellow (Yellow) A 11/13/24 15:40 Urine Appearance Cloudy (CLEAR) A 11/13/24 15:40 Urine pH 5.0 (5-7) 11/13/24 15:40 Ur Specific [place] 1.017 (1.005-1.030) 11/13/24 15:40 Urine Protein 2+ (Negative) A 11/13/24 15:40 Urine Glucose (UA) Negative (Normal) 11/13/24 15:40 Urine Ketones Negative (Negative) 11/13/24 15:40 Urine Blood 2+ (Negative) A 11/13/24 15:40 Urine Nitrate Negative (Negative) 11/13/24 15:40 Urine Bilirubin Negative (Negative) 11/13/24 15:40 Urine Urobilinogen 1.0 mg/dL (Negative) 11/13/24 15:40 Ur Leukocyte Esterase 2+ (Negative) A 11/13/24 15:40 Urine RBC 6-10 /hpf (0-2) 11/13/24 15:40 Urine WBC 51-100 /hpf (0-5) H 11/13/24 15:40 Ur Squamous Epith Cells 0-5 /hpf (0-5) 11/13/24 15:40 Amorphous Sediment Not Reportable 11/13/24 15:40 Urine Bacteria 2+ /hpf (NONE) H 11/13/24 15:40 Hyaline Casts 5.36 /lpf 11/13/24 15:40 All radiology interpretation(s) finalized by discharge Critical Care Time Critical Care Time: Critical Care Time: Yes Total Critical Care Time: 45 Attestation: The high probability of a clinically significant, sudden or life threatening deterioration of the patient's gu system(s) required my full and direct attention, intervention and personal management. The critical care time is as shown. This time is in addition to time spent performing any reported procedures but includes the following: [x] Data and vital sign review and interpretation [x] Patient assessment, examination and intervention [x] Documentation [x] Medication orders and management Discharge Plan Discharge Patient Disposition: Admitted As Inpatient Clinical Impression: Acute cystitis, Sepsis Condition: Stable Coding Level of Care Code ED Warehouse Supervisor 3Rd Shift for Sis Hyde
[2024-11-13 15:12] LABS: Hematocrit 37.1 % (36-47); Hemoglobin 11.90 g/dL (11.27-16.99); Mean Corpuscular HGB Conc 32.1 g/dL (30-55); Mean Corpuscular Hemoglobin 29.2 pg (27-33); Mean Corpuscular Volume 91.2 fl (85-98); Platelet Count 78 10^3/cmm (157-399); Red Blood Count 4.07 10^6/uL (3.85-5.65); White Blood Count 14.73 10^3/uL (3.29-11.43)
--- NOTE | 2024-11-13 15:21 | PC.NURSE ---
Pt refused zofran, lomotil and morphine. Pt states she is very sensitive to medicine. Pt states that all she wants is fluids.
--- NOTE | 2024-11-13 15:23 | CTR_ITS ---
PROCEDURE INFORMATION: Exam: CT Abdomen And Pelvis Without Contrast Exam date and time: 11/13/2024 3:54 PM Age: 64 years old Clinical indication: Vomiting; Prior surgery; Surgery date: 6+ months; Surgery type: Gb appy; PT was scanned yesterday. TECHNIQUE: Imaging protocol: Computed tomography of the abdomen and pelvis without contrast. Total images: 243 Radiation optimization: All CT scans at this facility use at least one of these dose optimization techniques: automated exposure control; mA and/or kV adjustment per patient size (includes targeted exams where dose is matched to clinical indication); or iterative reconstruction. COMPARISON: CT abdomen pelvis w con* [id number] 11/12/2024 9:25 AM RADIATION DOSE METRICS: Total DLP (mGy-cm): 1242.42 FINDINGS: Lungs: Trace bibasilar atelectasis or scar. 2 mm subpleural nodule laterally in the right lower lobe. Liver: Normal. No mass. Gallbladder and biliary ducts: Prior cholecystectomy noted. Pancreas: Normal. No ductal dilation. Spleen: Normal. No splenomegaly. Adrenal glands: Normal. No mass. Kidneys and ureters: 4.8 cm incidental left renal cyst requiring no further evaluation. Nonobstructive left sided kidney stone measures 3 mm. Previously noted left UPJ stone is no longer seen. Previously noted mild hydronephrosis of the left kidney has resolved. Perinephric fatty stranding remains. Stomach and bowel: Unremarkable. No obstruction. No mucosal thickening. Appendix: Appendix not visualized. Patient has history of prior appendectomy. Intraperitoneal space: Unremarkable. No free air. No significant fluid collection. Vasculature: Incidental phleboliths noted. Lymph nodes: Unremarkable. No enlarged lymph nodes. Urinary bladder: Unremarkable as visualized. Reproductive: Prior hysterectomy noted. Bones/joints: Unremarkable. No acute fracture. Soft tissues: Fat-containing umbilical hernia is present without inflammation. Other findings: Mild atherosclerotic disease burden is evident. CT/CT abdomen pelvis wo con [id number] IMPRESSION: 1. 2 mm subpleural nodule laterally in the right lower lobe. For patients at low risk (minimal or absent history of smoking and of other known risk factors), no routine follow-up is indicated. For patients at high risk (history of smoking or of other known risk factors), consider optional CT Chest at 12 months. (Reference: Peace) 2. Previously noted left UPJ stone is no longer seen. Previously noted mild hydronephrosis of the left kidney has resolved. Perinephric fatty stranding remains. REFERENCES: Peace Holland, et al. Guidelines for Management of Incidental Pulmonary Nodules Detected on CT Images: From the Fleischner Society 2017. Radiology. 2017;284(1):228-243.
[2024-11-13 15:32] LABS: Alanine Aminotransferase 49 U/L (0-33); Albumin Level 3.1 g/dL (3.5-5.2); Alkaline Phosphatase 87 U/L (35-105); Anion Gap 20.3 (5-19); Aspartate Amino Transferase 41 U/L (0-32); Blood Urea Nitrogen 38 mg/dL (8-23); Calcium 8.5 mg/dL (8.5-10.5); Carbon Dioxide 20 mmol/L (22-29); Chloride 91 mmol/L (98-107); Creatinine Clr Calc Pharmacy 47.6873; Globulin 3.0 g/dL (1.3-4.6); Glucose 220 mg/dL (65-115); Lactic Sepsis W/Reflex 2.7 mmol/L (0.5-2.2); Lipase 72 U/L (13-60); Osmolality Calculated 280 mOsm/kg (285-295); Potassium 4.3 mmol/L (3.5-5.1); Sodium 127 mmol/L (136-145); Total Protein 6.1 g/dL (6.6-8.7)
[2024-11-13 15:49] LABS: Glucose Urine UA Negative (Normal); Nitrate Urine Negative (Negative); Specific Gravity, Urine 1.017 (1.005-1.030)
[2024-11-13 15:54] LABS: Add Urine Microscopic? YES
[2024-11-13] MEDS: piperacillin-tazobactam 3.375 GM in sodium chloride 0.9% (plus) 50 ML IV (16:13)
[2024-11-13 16:38] LABS: Slide Review Slide Review Perform
[2024-11-13 16:39] LABS: Absolute Segmented Neutrophil 8.1 10/cmm (1.6-7.1); Atypical Lymphs 0.0 % (0-5); Band Neutrophils Absolute 3.1 10^3/cmm (0.0-1.2); Total Cells Counted 100 (0-100)
[2024-11-13 16:41] LABS: UA Slide Review UA Slide Review Perf
[2024-11-13 16:56] LABS: Reflex Lactate Order REFLEX LACTIC ORDERD
--- NOTE | 2024-11-13 18:02 | PM.HP ---
Providers/Chief Complaint Admitting Physician: Sandra Bosch MD Primary Care Provider: Rebekah Hinojosa APN Chief Complaint: N/V History of Present Illness As per the previous notes and the patient Nevaeh Cuellar is a 64 year old female was seen here yesterday was diagnosed with a kidney stone she states that she believes she passed a kidney stone but has been having vomiting diarrhea now. the patient reported having feeling of weakness and tiredness since 1-2 days and along with nausea and vomiting. There was associated diarrhea as well but no blood in the stools or any blood in the vomitus. no chest pain, no chest pressure, or any drug abuse history no abd pain or flank pain no leg swellings or any sob no previous recurrent UTIs. no smoking history Review of Systems General: Reports: 10 or more systems reviewed and unremarkable except in HPI and below Medications/Allergies Home Medications ?Medication ?Instructions ?Recorded ?Confirmed ?Last Taken ?Type glyburide 5 mg tablet 10 mg PO BID 12/25/23 11/13/24 11/13/24 History insulin human U-100 NPH-regulr 2.5 unit SUBCUT BID 12/25/23 11/13/24 11/13/24 History 70-30 mix 100 unit/mL subcutaneous susp (Novolin 70/30 U-100 Insulin) lisinopril 2.5 mg tablet 2.5 mg PO TID 12/25/23 11/13/24 11/13/24 History hydrocodone 5 mg-acetaminophen 325 1 tab PO Q6H PRN pain #14 tabs 11/12/24 11/13/24 Unknown Rx mg tablet ondansetron 4 mg disintegrating 4 mg PO Q6H PRN nausea and 11/12/24 11/13/24 Unknown Rx tablet vomiting #14 tabs tamsulosin 0.4 mg capsule (Flomax) 0.4 mg PO DAILY #5 caps 11/12/24 11/13/24 11/13/24 Rx Allergies Allergy/AdvReac Type Severity Reaction Status Date / Time amoxicillin Allergy Unknown Dizziness Verified 12/25/23 08:19 ciprofloxacin Allergy Unknown ALGY-Hives Verified 12/25/23 08:19 levothyroxine Allergy Unknown ALGY-Rash Verified 12/25/23 08:19 Sulfa (Sulfonamide Allergy Unknown ALGY-Rash Verified 12/25/23 08:19 Antibiotics) Influenza vaccine Allergy Unknown Unknown Uncoded 12/25/23 08:19 steroid shot Allergy Unknown Seizure Uncoded 12/25/23 08:19 PFSH Acute PFSH: Social History Smoking and tobacco/nicotine status: never used tobacco/nicotine Vitals/I&O/Wt Last Vital Signs Temp 98.1 F 11/13/24 14:44 Pulse 91 11/13/24 17:28 Resp 18 11/13/24 14:44 BP 96/61 11/13/24 17:28 Pulse Ox 93 11/13/24 17:28 O2 Del Method Room Air 11/13/24 17:18 11/13/24 11/13/24 11/13/24 06:59 14:59 22:59 Intake Total 2049 Balance 2049 Weight last 48 hrs Weight 126.099 kg Physical Exam Narrative: General: Alert and oriented, lying with moderate distress due to fever and chills with some dizziness HEENT: Normocephalic, atraumatic, grossly unremarkable exam Cardio: normal rate rhythm, normal S1-S2 without any murmurs, rubs, or gallops and JVD normal Respiratory: normal vascular breathing on auscultation without any wheezes, stridor, rhonchi GI: Abdomen soft, nontender, nondistended, normoactive bowel sounds present all 4 quadrants, no flank tenderness or suprapubic tenderness elicited Neuro: intact cranial nerves motor and sensory and cerebellar/coordination function without any focal neurological deficit Behavior: Appropriate and cooperative Extremities: Adequate palpable pulses, decreased capillary refill but no skin mottling decreased urinary output also observed in the patient is also a little bit dizzy and feels tired Skin: grossly unremarkable exam Data 11/13/24 15:04 11/13/24 15:04 Micro: Microbiology 11/13/24 15:00 Blood Culture - Preliminary Blood SPECIMEN COLLECTED 11/13/24 15:04 Blood Culture - Preliminary Blood SPECIMEN COLLECTED A&P Assessment and plan 1. Sepsis without acute organ dysfunction, due to unspecified organism: Fluid boluses given and follow-up lactate Broad-spectrum antibiotics started and blood cultures and urine cultures to follow To maintain MAP above 65 Monitor hemodynamics and adequate intake and output 2. Complicated UTI (urinary tract infection): Continue Zosyn and Vanco Insert Bajwa's catheter for adequate monitoring Follow urine cultures and blood cultures 3. Kidney stone: Patient already passed a renal stone Urology follow-up at discharge 4. Thrombocytopenia: Likely related to underlying sepsis Avoid heparin or Lovenox SCDs for VTE 5. Diabetes mellitus: insulin S/S at low dose PDMP PDMP Reviewed: Not Reviewed Attestations Medical Necessity Statement*: Patient will stay more than 2 midnights for the management of sepsis/urosepsis thrombocytopenia and acute cystitis and further optimization of her comorbidities. Time Spent in Patient Care: 16 - 35 minutes (>than 50% of time spent in counselling and/or direct pt care on unit). Critical Care Time: The high probability of a clinically significant, sudden or life threatening deterioration, as referenced in this documentation, required my full and direct attention, intervention and personal management. The critical care time shown is in addition to time spent performing any reported separately billable procedures and includes the following: [x] Data and vital sign review and interpretation [x] Patient assessment, examination and intervention [x] Medication orders and management [x] Patient/Family updates as able [x] Care Coordination and Documentation. Critical Care Time (min): 35 Other Attestations: Patient condition has been discussed at length with the patient/family, I have independently reviewed the chart labs imaging/diagnostics/EKG. the goals of care and code status with the patient/family/NOK/legal branch customer service representative, and documented accordingly. The patient/family has been informed about the current condition and further plan of care. Agreed with the plan of care and understood without any language barrier. Every effort was made to ensure accuracy of motorized squad captain. Any obvious errors or omissions should be clarified with the author of the document. Coding Level of Care Code Critical Care >/= 30 minutes Diagnoses Sepsis without acute organ dysfunction, due to unspecified organism A41.9 Sepsis type: sepsis due to unspecified organism Sepsis acute organ dysfunction status: without acute organ dysfunction Complicated UTI (urinary tract infection) N39.0 Kidney stone N20.0 Thrombocytopenia D69.6 Diabetes mellitus E11.9
--- NOTE | 2024-11-13 18:15 | PC.NURSE ---
report taken and placed in icu 8 iv fluids infusing , piid sites in place , in bed refused to take off clothes at this time . monitor vs Dr Urbina here orders
[2024-11-13 19:59] LABS: Lactic Acid level (Lactate) 2.2 mmol/L (0.5-2.2)
--- NOTE | 2024-11-13 23:12 | ECG_ITS ---
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 Measurements Intervals [place] Rate: 94 P: 33 [place]: 190 QRS: -54 QRSD: 102 T: 30 QT: 354 QTc: 445 Interpretive Statements SINUS RHYTHM LOW QRS VOLTAGE IN PRECORDIAL LEADS [QRS DEFLECTION < 1.0 mV IN CHEST LEADS] PATTERN CONSISTENT WITH PULMONARY DISEASE INFERIOR MYOCARDIAL INFARCTION , PROBABLY OLD [40+ ms Q WAVE AND/OR ST/T ABNORMALITY IN II/aVF] Compared to ECG 08/09/2014 19:23:03 Low QRS voltage now present Sinus tachycardia no longer present Indeterminate axis no longer present Myocardial infarct finding still present Electronically Signed On 11-14-2024 17:45:55 CDT by Peter Garza M.D. [email or web address]
[2024-11-13 23:30] LABS: MRSA PCR OZH (swab) NOT DETECTED (Not Detecte)
[2024-11-14] VITALS (47 sets, daily range): BP systolic 85–141; BP diastolic 46–84; PULSE 89–106; RESP 17–36; TEMP 36.1–37.6; O2SAT 73–97
[2024-11-14] MEDS: piperacillin-tazobactam 3.375 GM in sodium chloride 0.9% (plus) 50 ML IV ×2 (00:28→07:30)
[2024-11-14 04:13] LABS: Alanine Aminotransferase 38 U/L (0-33); Albumin Level 2.7 g/dL (3.5-5.2); Alkaline Phosphatase 108 U/L (35-105); Aspartate Amino Transferase 38 U/L (0-32); Blood Urea Nitrogen 36 mg/dL (8-23); Calcium 7.9 mg/dL (8.5-10.5); Carbon Dioxide 21 mmol/L (22-29); Chloride 97 mmol/L (98-107); Globulin 2.9 g/dL (1.3-4.6); Glucose 203 mg/dL (65-115); Lactate (Lactic Acid level) 2.3 mmol/L (0.5-2.2); Osmolality Calculated 288 mOsm/kg (285-295); Sodium 132 mmol/L (136-145); Total Protein 5.6 g/dL (6.6-8.7)
[2024-11-14 04:14] LABS: Anion Gap 18.3 (5-19); Creatinine Clr Calc Pharmacy 52.0672; Potassium 4.3 mmol/L (3.5-5.1)
[2024-11-14 04:17] LABS: Hematocrit 33.6 % (36-47); Hemoglobin 10.70 g/dL (11.27-16.99); Mean Corpuscular HGB Conc 31.8 g/dL (30-55); Mean Corpuscular Hemoglobin 29.0 pg (27-33); Mean Corpuscular Volume 91.1 fl (85-98); Platelet Count 57 10^3/cmm (157-399); Red Blood Count 3.69 10^6/uL (3.85-5.65); White Blood Count 10.98 10^3/uL (3.29-11.43)
[2024-11-14 04:46] LABS: Slide Review Slide Review Perform
[2024-11-14 04:48] LABS: Absolute Segmented Neutrophil 4.8 10/cmm (1.6-7.1); Atypical Lymphs 3.0 % (0-5); Band Neutrophils Absolute 3.3 10^3/cmm (0.0-1.2); Giant Platelets Trace; Smudge Cells Trace; Total Cells Counted 100 (0-100)
[2024-11-14 07:48] LABS: Bacteroides fragilis Not Detected (NOT DETECT); CTX-M Not Detected (NOT DETECT); Citrobacter Not Detected (NOT DETECT); Cronobacter sakazakii Not Detected (NOT DETECT); Enterobacter non cloacae Not Detected (NOT DETECT); Fusobacterium necrophorum Not Detected (NOT DETECT); Fusobacterium nucleatum Not Detected (NOT DETECT); IMP Resistance Gene Not Detected (NOT DETECT); KPC Resistance Gene Not Detected (NOT DETECT); Klebsiella pneumoniae group Not Detected (NOT DETECT); Morganella morganii Not Detected (NOT DETECT); NDM Resistance Gene Not Detected (NOT DETECT); OXA Resistance Gene Not Detected (NOT DETECT); Pan Candida Not Detected (NOT DETECT); Pan Gram-Positive Not Detected (NOT DETECT); Proteus mirabilis Not Detected (NOT DETECT); Serratia Not Detected (NOT DETECT); Serratia marcescens Not Detected (NOT DETECT); Stenotrophomonas maltophilia Not Detected (NOT DETECT); VIM Resistance Gene Not Detected (NOT DETECT)
--- NOTE | 2024-11-14 09:00 | P.PN_ITS ---
Subjective 2 Subjective: the patient was seen in the morning, feeling much better. still mild fatigue and tiredness. the patient reports that she is allergic to Insulin lispro and would like to keep her NPH insulin. Patient chart reviewed and medication reconciled accordingly Vitals/I&O/Wt Last Vital Signs Temp 97.3 F L 11/14/24 08:00 Pulse 94 11/14/24 08:00 Resp 22 H 11/14/24 08:00 BP 120/61 11/14/24 08:00 Pulse Ox 94 11/14/24 08:00 O2 Del Method Nasal Cannula 11/14/24 05:30 O2 Flow Rate 2 11/14/24 05:30 11/13/24 11/14/24 11/14/24 22:59 06:59 14:59 Intake Total 4780 / 4780 1050 / 5830 100 / 100 Output Total 100 / 100 1999 / 2100 Balance 4680 / 4680 -950 / 3730 100 / 100 Weight last 48 hrs Weight 130 kg Weight 130 kg Weight 130 kg Weight 126.099 kg Physical Exam 2 Narrative: General: Alert and oriented, lying with mild distress however relatively improved than yesterday, Currently on 2 L and saturating above 94% HEENT: Normocephalic, atraumatic, grossly unremarkable exam Cardio: normal rate rhythm, normal S1-S2 without any murmurs, rubs, or gallops and JVD normal Respiratory: normal vascular breathing on auscultation without any wheezes, stridor, rhonchi GI: Abdomen soft, nontender, nondistended, normoactive bowel sounds present all 4 quadrants, no flank tenderness or suprapubic tenderness elicited Neuro: intact cranial nerves motor and sensory and cerebellar/coordination function without any focal neurological deficit Behavior: Appropriate and cooperative Extremities: Adequate palpable pulses, adequate capillary refill and producing good amount of urine through Bajwa's catheter Skin: grossly unremarkable exam Urinary Catheter Management: Bajwa: Cath Placed During This Visit: yes Reason for Continuing Indwelling Catheter: Accurate Measurement of Urinary Output in Critically Ill Patients Urinary Catheter Date of Insertion: 11/13/24 Urinary Catheter Time of Insertion: 20:30 Data 11/14/24 03:22 11/14/24 03:22 Micro: Microbiology 11/13/24 15:40 Urine Culture - Preliminary Urine,Clean Catch Gram Negative Rods 11/13/24 15:04 Blood Culture - Preliminary Blood SPECIMEN COLLECTED 11/13/24 15:00 Blood Culture - Preliminary Blood SPECIMEN COLLECTED A&P Assessment and plan 1. Sepsis without acute organ dysfunction, due to unspecified organism: Fluid responsive and fluid boluses given and follow-up lactate showed improvement Broad-spectrum antibiotics with Vanco and Zosyn was initially given however considering thrombocytopenia, patient Zosyn was switched to meropenem Vancomycin discontinued send the patient MRSA is negative Blood culture showed gram-negative rods which are also seen in the urine culture Follow the final report and culture sensitivity Monitor hemodynamics and adequate intake and output 2. Complicated UTI (urinary tract infection): Continue on meropenem and follow the final cultures (urine culture growing gram- negative rods) Insert Bajwa's catheter for adequate monitoring 3. Kidney stone: Patient already passed a renal stone Urology follow-up at discharge 4. Thrombocytopenia: Likely related to underlying sepsis and could be related to Zosyn as well Hold Zosyn and switch to meropenem since Zosyn can lead to thrombocytopenia Avoid heparin or Lovenox Monitor for any obvious source of bleeding SCDs for VTE 5. Diabetes mellitus: The patient reported allergy and would like to prefer NPH that she takes at home as inpatient. The patient reported that she cannot have any other regular insulin and would prefer to have NPH for inpatient management. A thorough discussion with the pharmacist has been done and the patient to be started on NPH 5 units twice daily of note: Patient takes 15 units twice daily at home, therefore considering she is in septic shock and inpatient therefore her home dose units have been reduced. All the complication risk and benefits has been thoroughly informed to the patient With further monitoring, agreed with the plan without any language barrier. Continue to monitor glucose PDMP PDMP Reviewed: Not Reviewed Attestations 2 Medical Necessity Statement*: Patient will stay more than 2 midnights for the management of sepsis/urosepsis thrombocytopenia and acute cystitis and further optimization of her comorbidities. Time Spent in Patient Care: 16 - 35 minutes (>than 50% of time sp ent in counselling and/or direct pt care on unit) . Critical Care Time: The high probability of a clinically significant, sudden or life threatening deterioration, as referenced in this documentation, required my full and direct attention, intervention and personal management. The critical care time shown is in addition to time spent performing any reported separately billable procedures and includes the following: [x] Data and vital sign review and interpretation [x ] Patient assessment, examination and intervention [x] Medication orders and management [x] Patient/Family updates as able [x] Care Coordination and Documentation. Critical Care Time (min): 35 Critical Care Time (min): 35 Other Attestations: Patient condition has been discussed at length with the patient/family, I have independently reviewed the chart labs imaging/diagnostics/EKG. the goals of care and code status with the patient/family/NOK/legal access representative, and documented accordingly. The patient/family has been informed about the current condition and further plan of care. Agreed with the plan of care and understood without any language barrier. Every effort was made to ensure accuracy of fumigator and sterilizer. Any obvious errors or omissions should be clarified with the author of the document. Coding Level of Care Code Critical Care >/= 30 minutes Diagnoses Sepsis without acute organ dysfunction, due to unspecified organism A41.9 Sepsis acute organ dysfunction status: without acute organ dysfunction Sepsis type: sepsis due to unspecified organism Complicated UTI (urinary tract infection) N39.0 Kidney stone N20.0 Thrombocytopenia D69.6 Diabetes mellitus E11.9
[2024-11-14] MEDS: MEROPENEM 2,000 MG in sodium chloride 0.9% (plus) 50 ML 100 MG IV ×2 (09:26→17:01)
--- NOTE | 2024-11-14 14:13 | PC.NURSE ---
pt upset and anxious states she can not take that reqular insulin per sliding scale it has to be novolog 70/30 doctor and pharmacy notified,
--- NOTE | 2024-11-14 17:41 | PC.NURSE ---
pt restless wanting to go home,,,I m not going to get better so i want to go explained infection and antibiotics, assisted up in chair to assist make pt more comfortable remains weak
--- NOTE | 2024-11-14 18:26 | PC.NURSE ---
brought in / insulin pharmacy not here labeled , given 5 units
[2024-11-15] VITALS (49 sets, daily range): BP systolic 95–166; BP diastolic 48–101; PULSE 78–98; RESP 19–39; TEMP 36.8–37.2; O2SAT 87–95
[2024-11-15] MEDS: MEROPENEM 2,000 MG in sodium chloride 0.9% (plus) 50 ML 100 MG IV (01:14)
[2024-11-15 04:23] LABS: Alanine Aminotransferase 30 U/L (0-33); Albumin Level 2.5 g/dL (3.5-5.2); Alkaline Phosphatase 136 U/L (35-105); Anion Gap 16.8 (5-19); Aspartate Amino Transferase 23 U/L (0-32); Blood Urea Nitrogen 23 mg/dL (8-23); Calcium 8.6 mg/dL (8.5-10.5); Carbon Dioxide 20 mmol/L (22-29); Chloride 101 mmol/L (98-107); Globulin 3.5 g/dL (1.3-4.6); Glucose 250 mg/dL (65-115); Osmolality Calculated 290 mOsm/kg (285-295); Potassium 3.8 mmol/L (3.5-5.1); Sodium 134 mmol/L (136-145); Total Protein 6.0 g/dL (6.6-8.7)
[2024-11-15 04:28] LABS: Creatinine Clr Calc Pharmacy 72.8941
--- NOTE | 2024-11-15 04:55 | P.PN_ITS ---
Subjective 2 Subjective: 64-year-old female sleeping on her right side comfortably. She states she has not had teeth for 10 years so can eat hard food and appreciates the soft mechanical. She is accompanied by her [place] who is present at bedside. Patient blood draw has been difficult so I had that canceled for now. Vitals/I&O/Wt Last Vital Signs Temp 99 F 11/15/24 03:00 Pulse 89 11/15/24 03:00 Resp 27 H 11/15/24 03:00 BP 106/81 11/15/24 03:00 Pulse Ox 95 11/15/24 03:00 O2 Del Method Room Air 11/15/24 03:00 O2 Flow Rate 2 11/14/24 05:30 11/14/24 11/14/24 11/15/24 14:59 22:59 06:59 Intake Total 270 / 270 1830 / 2100 50 / 2150 Output Total 1800 / 1800 3400 / 5200 1500 / 6700 Balance -1530 / -1530 -1570 / -3100 -1450 / -4550 Weight last 48 hrs Weight 130 kg Weight 130 kg Weight 130 kg Weight 126.099 kg Physical Exam 2 Narrative: General well-developed morbidly obese female in no acute cardiopulmonary stress CV regular rate and rhythm Lungs clear to auscultation bilaterally Back no CVA tenderness Calves 1+ edema Mentation alert and orient x 3 Urinary Catheter Management: Bajwa: Cath Placed During This Visit: yes Reason for Continuing Indwelling Catheter: Accurate Measurement of Urinary Output in Critically Ill Patients Urinary Catheter Date of Insertion: 11/13/24 Urinary Catheter Time of Insertion: 20:30 Data 11/14/24 03:22 11/15/24 03:49 Micro: Microbiology 11/13/24 15:04 Blood Culture - Preliminary Blood Escherichia coli 11/13/24 15:00 Blood Culture - Preliminary Blood Escherichia coli 11/13/24 15:40 Urine Culture - Preliminary Urine,Clean Catch Gram Negative Rods A&P Assessment and plan 1. Escherichia coli sepsis: Patient's blood pressure is normalized. There is concern that she could have ESBL but patient states she has never had a resistant organism with her UTIs in the past. Her last UTI was 2 years ago and she has never been hospitalized specifically for a UTI in the past. She has been hospitalized for hypotension Patient was 4 of 4 bottles gram-negative rods positive for E. coli sensitivities are pending. 2. Complicated UTI (urinary tract infection): Meropenem though different from Zosyn also has a fairly high rate of thrombocytopenia. Rocephin though also implicated in thrombocytopenia has an instance of 10 and 1 million I am going to switch her to Rocephin for now 3. Kidney stone: Patient already passed a renal stone but still has a small stone in the left kidney. Urology follow-up at discharge this may or may not be an ongoing source of recurring infection and if it is that will need to be removed 4. Thrombocytopenia: Avoid heparin or Lovenox Monitor for any obvious source of bleeding SCDs for VTE 5. Diabetes mellitus: Blood sugar elevated to 40. Increase NPH to 10 units twice a day. Patient was counseled and is willing to do weight loss diet. She states she has been on 1200-calorie diet in the past without weight loss. I discussed that likely a 1500-calorie weight loss diet would result in weight loss and that perhaps she was not counting calories correctly. She states she is not sure but tells me she was not drinking any calories such as juice milk sodas PDMP PDMP Reviewed: Not Reviewed Attestations 2 Medical Necessity Statement*: Patient remained in the hospital and anticipate 1-2 more midnights. Increase activity and anticipate transfer to the floor Coding Level of Care Code 72975 Diagnoses Escherichia coli sepsis A41.51 Complicated UTI (urinary tract infection) N39.0 Kidney stone N20.0 Thrombocytopenia D69.6 Diabetes mellitus E11.9 Time Spent (min) 35
[2024-11-15] MEDS: cefTRIAXone 2,000 mg SDV 2000 MG IVP (05:46)
[2024-11-15] MEDS: [UNRECOGNIZED DRUG - OTHER] 10 EACH SUBCUT ×2 (07:37→17:06)
--- NOTE | 2024-11-15 23:36 | PC.NURSE ---
Patient hit call light earlier in shift and asked if she could remove medical monitoring equipment. Patient educated on importance of being able to monitor vitals. Later patient his call light and asked for ice water. She had removed cardiac monitoring and refused to put it back on. Patient again educated on importance of being able to monitor from outside the room and stated well she was supposed to move to a different floor today and probably would not have it there. I explained to patient that there are still monitoring orders in the system for her. Patient still refused.
[2024-11-16] VITALS (26 sets, daily range): BP systolic 122–167; BP diastolic 61–106; PULSE 82–84; TEMP 36.8; O2SAT 88–96
[2024-11-16] MEDS: cefTRIAXone 2,000 mg SDV 2000 MG IVP (05:33)
[2024-11-16] MEDS: [UNRECOGNIZED DRUG - OTHER] 10 EACH SUBCUT (07:52)
--- NOTE | 2024-11-16 13:31 | PM.DCS ---
Discharge Providers Date of Admission: 11/13/24 16:59 Date of Discharge: November 16, 2024 Attending Provider at Admission: Sandra Bosch MD Attending Provider at Discharge: Anderson Campbell MD Primary Care Provider: Rebekah Hinojosa APN Diagnoses at Discharge Discharge Diagnosis 1. Escherichia coli sepsis: Details from hospital stay: Patient passed a left kidney stone which transiently obstructed the kidney and UTI was therefore associated with urosepsis requiring ICU care and fluid boluses. Left kidney still has a 3 mm nonobstructing kidney stone and a 4.8 cm incidental cyst. 2. Complicated UTI (urinary tract infection): Details from hospital stay: Complicated by transient left ureteral obstruction. That stone passed but she still has a left kidney stone that is nonobstructing 3 mm in size 3. Kidney stone: Details from hospital stay: Follow-up with Dr. Brady in [place] to consider lithotripsy 4. Thrombocytopenia: Details from hospital stay: Attributable to Zosyn. Antibiotics have been changed 5. Diabetes mellitus: Details from hospital stay: Continue with home diabetic regimen. Patient reports allergy to other insulins besides her Novolin 70/30 and would not except Lantus and Humalog here 6. Lung nodule seen on imaging study: Details from hospital stay: Incidental 2 mm nodule likely low risk follow-up with your PCP Reason for Visit Reason for Visit: N/V Brief History: Nevaeh Cuellar is a 64 year old female was seen here yesterday was diagnosed with a kidney stone she states that she believes she passed a kidney stone but has been having vomiting diarrhea now. the patient reported having feeling of weakness and tiredness since 1-2 days and along with nausea and vomiting. There was associated diarrhea as well but no blood in the stools or any blood in the vomitus. no chest pain, no chest pressure, or any drug abuse history no abd pain or flank pain no leg swellings or any sob no previous recurrent UTIs. no smoking history Hospital Course Hospital Course Patient was admitted the ICU and required fluid boluses. Her blood pressures were low for the first 24 hours then normalized and became hypertensive. She has had no flank pain. Initial CT scan showed obstructing stone and pyelonephritis. Subsequent CT scan showed that kidney stone passed but there is a nonobstructing left kidney stone 3 mm and a left incidental cyst 4.8 cm Physical Exam Narrative: General well-developed morbidly obese female in no acute cardiopulmonary stress CV regular rate and rhythm Lungs clear to auscultation bilaterally Back no CVA tenderness Calves no edema Mentation alert and orient x 3 Urinary Catheter Management: Bajwa: Cath Placed During This Visit: yes Reason for Continuing Indwelling Catheter: Accurate Measurement of Urinary Output in Critically Ill Patients Urinary Catheter Date of Insertion: 11/13/24 Urinary Catheter Time of Insertion: 20:30 Discharge Data Studies Completed and Pending Completed Studies During Hospitalization Category Date Time Status CT abdomen pelvis wo con [id number] Stat Cat Scan 11/13/24 15:23 Completed Pending at discharge Category Date Time Status Blood Culture Stat Lab 11/13/24 15:00 Results Radiology Impressions Abdomen/Pelvis CT 11/13/24 15:23 IMPRESSION: 1. 2 mm subpleural nodule laterally in the right lower lobe. For patients at low risk (minimal or absent history of smoking and of other known risk factors), no routine follow-up is indicated. For patients at high risk (history of smoking or of other known risk factors), consider optional CT Chest at 12 months. (Reference: Peace) 2. Previously noted left UPJ stone is no longer seen. Previously noted mild hydronephrosis of the left kidney has resolved. Perinephric fatty stranding remains. REFERENCES: Peace H, et al. Guidelines for Management of Incidental Pulmonary Nodules Detected on CT Images: From the Fleischner Society 2017. Radiology. 2017;284(1):228-243. Laboratory Results WBC Cancelled 11/15/24 03:49 Corrected WBC Cancelled 11/15/24 03:49 RBC Cancelled 11/15/24 03:49 Hgb Cancelled 11/15/24 03:49 Hct Cancelled 11/15/24 03:49 MCV Cancelled 11/15/24 03:49 MCH Cancelled 11/15/24 03:49 MCHC Cancelled 11/15/24 03:49 RDW Cancelled 11/15/24 03:49 Plt Count Cancelled 11/15/24 03:49 MPV Cancelled 11/15/24 03:49 Gran % Cancelled 11/15/24 03:49 Neut % (Auto) Cancelled 11/15/24 03:49 Lymph % (Auto) Cancelled 11/15/24 03:49 Will % (Auto) Cancelled 11/15/24 03:49 Eos % (Auto) Cancelled 11/15/24 03:49 Baso % (Auto) Cancelled 11/15/24 03:49 Neut # (Auto) Cancelled 11/15/24 03:49 Lymph # (Auto) Cancelled 11/15/24 03:49 Will # (Auto) Cancelled 11/15/24 03:49 Eos # (Auto) Cancelled 11/15/24 03:49 Baso # (Auto) Cancelled 11/15/24 03:49 Absolute Gran (auto) Cancelled 11/15/24 03:49 Nucleated RBC % (auto) Cancelled 11/15/24 03:49 Total Counted 100 (0-100) 11/14/24 03:22 Atypical Lymphs % 3.0 % (0-5) 11/14/24 03:22 Absolute Neutrophils 8.1 10^3/cmm (1.4-6.5) H 11/14/24 03:22 Segmented Neutrophils 44 % 11/14/24 03:22 Band Neutrophils 30.0 % 11/14/24 03:22 Absolute Lymphocytes 0.8 10^3/cmm (1.2-3.4) L 11/14/24 03:22 Lymphocytes (Manual) 4 % 11/14/24 03:22 Monocytes (Manual) 2.0 % 11/14/24 03:22 Absolute Monocytes 0.2 10^3/cmm (0.1-0.6) 11/14/24 03:22 Eosinophils (Manual) 0 % 11/14/24 03:22 Absolute Eosinophils 0.0 10^3/cmm (0.0-0.7) 11/14/24 03:22 Basophils (Manual) 0.0 % 11/14/24 03:22 Absolute Basophils 0.0 10^3/cmm (0.0-0.2) 11/14/24 03:22 Metamyelocytes 17.0 % 11/14/24 03:22 Myelocytes 0.0 % 11/14/24 03:22 Nucleated RBCs # Cancelled 11/15/24 03:49 Smudge Cells Trace 11/14/24 03:22 Platelet Estimate Decreased (Normal) L 11/14/24 03:22 Giant Platelets Trace 11/14/24 03:22 Sodium 134 mmol/L (136-145) L 11/15/24 03:49 Potassium 3.8 mmol/L (3.5-5.1) 11/15/24 03:49 Chloride 101 mmol/L (98-107) 11/15/24 03:49 Carbon Dioxide 20 mmol/L (22-29) L 11/15/24 03:49 Anion Gap 16.8 (5-19) 11/15/24 03:49 BUN 23 mg/dL (8-23) 11/15/24 03:49 Creatinine 1.0 mg/dL (0.5-0.9) H 11/15/24 03:49 GFR Calculation 55.5 mL/min (90-130) L 11/15/24 03:49 Glucose 250 mg/dL (65-115) H 11/15/24 03:49 POC Glucose 261 mg/dL (70-110) H 11/16/24 07:38 Calculated Osmolality 290 mOsm/kg (285-295) 11/15/24 03:49 Lactic Acid 2.7 mmol/L (0.5-2.2) H 11/13/24 15:04 Lactic Acid (Sepsis) 2.2 mmol/L (0.5-2.2) 11/13/24 19:31 Lactate 2.3 mmol/L (0.5-2.2) H 11/14/24 03:22 Calcium 8.6 mg/dL (8.5-10.5) 11/15/24 03:49 Total Bilirubin 0.6 mg/dL (0.15-1.2) 11/15/24 03:49 AST 23 U/L (0-32) 11/15/24 03:49 ALT 30 U/L (0-33) 11/15/24 03:49 Alkaline Phosphatase 136 U/L (35-105) H 11/15/24 03:49 Total Protein 6.0 g/dL (6.6-8.7) L 11/15/24 03:49 Albumin 2.5 g/dL (3.5-5.2) L 11/15/24 03:49 Globulin 3.5 g/dL (1.3-4.6) 11/15/24 03:49 Lipase 72 U/L (13-60) H 11/13/24 15:04 Urine Color Dark yellow (Yellow) A 11/13/24 15:40 Urine Appearance Cloudy (CLEAR) A 11/13/24 15:40 Urine pH 5.0 (5-7) 11/13/24 15:40 Ur Specific [place] 1.017 (1.005-1.030) 11/13/24 15:40 Urine Protein 2+ (Negative) A 11/13/24 15:40 Urine Glucose (UA) Negative (Normal) 11/13/24 15:40 Urine Ketones Negative (Negative) 11/13/24 15:40 Urine Blood 2+ (Negative) A 11/13/24 15:40 Urine Nitrate Negative (Negative) 11/13/24 15:40 Urine Bilirubin Negative (Negative) 11/13/24 15:40 Urine Urobilinogen 1.0 mg/dL (Negative) 11/13/24 15:40 Ur Leukocyte Esterase 2+ (Negative) A 11/13/24 15:40 Urine RBC 6-10 /hpf (0-2) 11/13/24 15:40 Urine WBC 51-100 /hpf (0-5) H 11/13/24 15:40 Ur Squamous Epith Cells 0-5 /hpf (0-5) 11/13/24 15:40 Amorphous Sediment Not Reportable 11/13/24 15:40 Urine Bacteria 2+ /hpf (NONE) H 11/13/24 15:40 Hyaline Casts 5.36 /lpf 11/13/24 15:40 Nasal MRSA (PCR) Not detected (Not Detecte) 11/13/24 21:40 Vitals Last Vital Signs Temp 98.2 F 11/16/24 03:00 Pulse 84 11/16/24 12:00 Resp 26 H 11/15/24 08:00 BP 123/84 11/16/24 12:00 Pulse Ox 95 11/16/24 12:00 O2 Del Method Room Air 11/15/24 19:00 O2 Flow Rate 2 11/14/24 05:30 Discharge Plan Discharge Patient Disposition: Home Condition: Stable Prescriptions: New cefuroxime axetil 500 mg tablet 500 mg PO BID 7 Days Qty: 14 0RF Continued lisinopril 2.5 mg tablet 2.5 mg PO TID glyburide 5 mg tablet 10 mg PO BID hydrocodone-acetaminophen 5-325 mg tablet 1 tab PO Q6H PRN (Reason: pain) Qty: 14 0RF ondansetron 4 mg tablet,disintegrating 4 mg PO Q6H PRN (Reason: nausea and vomiting) Qty: 14 0RF Changed Novolin 70/30 U-100 Insulin 100 unit/mL (70-30) suspension 15 unit SUBCUT BID Qty: 10 0RF Discontinued tamsulosin [Flomax] 0.4 mg capsule 0.4 mg PO DAILY Qty: 5 0RF Discharge Order = DC NOW: Discharge Order (Routine); Ordered 11/16/24 Ordered By: Anderson Campbell Other Ambulatory Orders: DME: Sukumar (Order) Location: None Selected Ordered By: Anderson Campbell Referrals: [facility] [Outside] Amadeo Brady [Referring, Urology] - 2 weeks Referral Note: Left kidney stone Problems: Kidney stone; Escherichia coli sepsis; Complicated UTI (urinary tract infection) Ashish,SAMARIA Welch [Primary Care Provider, Nurse Practitioner] - 1 week Referral Note: Appointment 11/23/24 at 1:20pm Patient Instructions: Opioid Safety, Patient Portal & Marcia Instructions, Kidney Stones (GEN), Pulmonary Nodules (GEN) Activity Restrictions/Additional Instructions: Take antibiotics as prescribed till gone Follow-up with urology to consider lithotripsy for remaining left kidney stone You had incidental finding of a tiny lung nodule on your CT scan done looking at your abdomen. This may not be important but consider reimaging in 12 months if you have been a smoker in the past Discharge Attestations Time Spent in Discharge Care*: greater than 30 min Time Spent in Smoking Cessation: Patient is not a smoker Quality Metrics Clinical Quality Measures [ No reported AMI, CVA or VTE this stay] Coding Level of Care Code 85581 Diagnoses Escherichia coli sepsis A41.51 Complicated UTI (urinary tract infection) N39.0 Kidney stone N20.0 Thrombocytopenia D69.6 Diabetes mellitus E11.9 Lung nodule seen on imaging study R91.1 Time Spent (min) 40
--- NOTE | 2024-11-16 14:29 | PC.NURSE ---
All D/C instructions educated to patient and , IV and foly dc, transporting patient home
== END 2024-11-16 14:30 | disposition home or self-care (01) | DRG 872 ==
LOC: ER 17:18 → ICU 17:24
PROVIDERS: Admitting Provider Student in an Organized Health Care Education/Training Program; Emergency Provider Emergency Medicine; PCP Nurse Practitioner Family; Visit Provider Internal Medicine
DX: A41.51 Sepsis due to Escherichia coli [E. coli] (principal); N30.00 Acute cystitis without hematuria; N20.0 Calculus of kidney; D69.6 Thrombocytopenia, unspecified; E11.9 Type 2 diabetes mellitus without complications; R91.1 Solitary pulmonary nodule; Z79.4 Long term (current) use of insulin
CPT/HCPCS: 36415; 36416; 51702; 74176; 80053; 81001; 82962; 83605; 83690; 85007; 85025; 87040; 87077; 87086; 87150; 87186; 87205; 93005; 96365; 96367; 96372; 97116; 97161; 97167; 97530; 99285; J0696; J1815; J2185; J2543; J3373; J3490; J7030; J7050; J7120; J9999